=== PATIENT | female | born 1950 | race Caucasian/White ===

== ENCOUNTER 2018-11-20 11:01 | Observation (INO) | payer MEDICARE ==
[~2018-11-20] VITALS: Ht 157.5 cm; Wt 90.5 kg
--- OUTSIDE RECORDS SUMMARY | 2018-11-20 12:09 | XMS REPORT | Clinical Summary ---
Author Author [facility] Organization [facility] Address Unknown Phone Unavailable Care Team Providers Care Caustic Loader Name Role Phone Jose Bhandari MD PCP Allergies No Known Allergies Medications End Date Status Medication Sig Dispensed Refills Start Date Active acetaminophen (TYLENOL) Insert 650 mg 0 650 MG suppository into the rectum every 4 (four) hours as needed for mild pain. Active meloxicam (MOBIC) 7.5 mg Take 1 tablet 14 tablet 0 tablet (7.5 mg 7 total) by mouth daily as needed for mild pain for up to 14 doses. Active Problems Not on file Immunizations Name Dates Previously Given Next Due Tdap 03/14/2017 Social History Date Tobacco Use Types Packs/Day Years Used Never Assessed Sex Assigned at Date Recorded Not on file Industry Job Start Date Occupation Not on file Not on file Not on file Travel End Travel History Travel Start No recent travel history available. Last Filed Vital Signs Not on file Plan of Treatment Health Maintenance Due Date Last Done Comments CERVICAL CANCER SCREENING 1973 BREAST CANCER SCREENING 2002 COLON CANCER SCREENING 2002 SHINGLES VACCINES (#1) 2002 65+ PNEUMOCOCCAL VACCINE 2017 (1 of 2 - PCV13) PNEUMOCOCCAL 2017 POLYSACCHARIDE VACCINE AGE 65 AND OVER INFLUENZA VACCINE 04/08/2018 Results Not on fileafter 11/19/2017 Insurance Payer Benefit Subscriber ID Type Phone Address Plan / Group [facility] xxxxxxxxx PPO THCARE PPO- [facility] xxxxxxxxx HMO/PPO THCARE CHOICE/CHO ICE + 5 [facility] karthikeyan (Home) [place] [id number] Advance Directives Patient has advance care planning documents on file. For more information, yanick thomas contact: Laci Chavez [phone] [place] [address]
--- OUTSIDE RECORDS SUMMARY | 2018-11-20 12:10 | XMS REPORT | Continuity of Care Document ---
Author Author [facility] Interface Address Unknown Phone Unavailable Problems Problem Status Onset Date Classification Date Reported Comments Source GENERAL PAIN Active 07/02/2015 [facility] 787.02 - NAUSEA ALONE Active 05/24/2015 [facility] Low back pain<sup>2</sup> Active 01/09/2015 Problem 07/05/2015 Data migrated from [email or web address] on 05/02/15. [facility] Lumbosacral spondylosis without myelopathy<sup>3</sup> Active 01/09/2015 Problem 07/05/2015 Data migrated from [email or web address] on 05/02/15. [facility] IMPLANT EXCHANGE/BRACHIOPLASTY 05/24 DS Active 05/07/2013 [facility] STOMACH PAIN Active 08/14/2012 [facility] MORBID OBESITY Active 02/26/2012 [facility] VOMITING/NAUSEA Active 02/17/2012 [facility] Nausea Active 09/08/2011 Problem 05/26/2013 [facility] Nausea Active 09/08/2011 Problem 07/05/2015 [facility] Degenerative disc disease Active Problem 05/26/2013 [facility] Depression Active Problem 05/26/2013 [facility] Depression Resolved Problem 05/26/2013 [facility] Hepatitis<sup>1</sup> Resolved Problem 05/26/2013 1B [facility] Hypertension Active Problem 05/26/2013 [facility] Morbid obesity Active Problem 05/26/2013 [facility] Degenerative disc disease Active Problem 07/05/2015 [facility] Depression Active Problem 07/05/2015 [facility] Depression Resolved Problem 07/05/2015 [facility] Hepatitis<sup>1</sup> Resolved Problem 07/05/2015 B [facility] Hypertension Active Problem 07/05/2015 [facility] Morbid obesity Active Problem 07/05/2015 [facility] ADMINISTRTVE ENCOUNT NOS Active [facility] Medications Medication Details Route Status Patient Instructions Ordering Provider Order Date Source biotin 5000 mcg oral tablet, disintegrating 0 Refill(s) Active 07/02/2015 [facility] Chlordiazepoxide Hydrochloride 5 MG / Clidinium bromide 2.5 MG Oral Capsule [Librax] 1 cap, PO, QID, PRN for indigestion, # 40 cap, 0 Refill(s) Active 07/02/2015 [facility] valACYclovir 500 mg oral tablet 500 mg=1 tab, PO, Q8H, # 42 tab, 0 Refill(s) Active 07/02/2015 [facility] Ketorolac 30 mg, Route: IM, Drug form: INJ, ONCE, Dosing Weight 84.091, kg, Priority: STAT, Start date: 07/02/15 5:42:00, Stop date: 07/02/15 5:42:00 Inactive 07/02/2015 [facility] omeprazole 20 mg oral delayed release capsule 20 mg=1 cap, PO, Daily, # 30 cap, 0 Refill(s) Active 07/02/2015 [facility] sucralfate 1 g oral tablet 2 gm=2 tab, PO, QID, # 240 tab, 0 Refill(s) Active 07/02/2015 [facility] ondansetron 4 mg, Route: IVP, ONCE, Dosing Weight 70.455, kg, PRN Nausea & Vomiting, Start date: 05/24/13 10:48:00 IVP No Longer Active Sinan 05/24/2013 [facility] hydromorphone 0.5 mg, 0.5 mL, Route: IVP, Drug form: INJ, Q5Min, Dosing Weight 70.455, kg, PRN Pain Score 7-10, Start date: 05/24/13 10:48:00, Duration: 5 doses or times, Stop date: Limited # of times IVP No Longer Active Sinan 05/24/2013 [facility] fentanyl 25 microgram, 0.5 mL, Route: IVP, Drug form: INJ, Q5Min, Dosing Weight 70.455, kg, PRN Pain Score 4-6, Start date: 05/24/13 10:48:00, Duration: 4 doses or times, Stop date: Limited # of times IVP No Longer Active Sinan 05/24/2013 [facility] flumazenil 0.2 mg, 2 mL, Route: IVP, Drug form: INJ, PRN, Dosing Weight 70.455, kg, PRN Benzodiazepine Reversal, Initial dose, Start date: 05/24/13 10:48:00, Duration: 5 doses or times, Stop date: Limited # of times IVP No Longer Active Sinan 05/24/2013 [facility] naloxone 0.04 mg, 0.1 mL, Route: IVP, Drug form: INJ, Q2MIN, Dosing Weight 70.455, kg, PRN Narcotic Reversal, Start date: 05/24/13 10:48:00, Duration: 8 doses or times, Stop date: Limited # of times IVP No Longer Active Sinan 05/24/2013 [facility] acetaminophen-oxycodone 325 mg-5 mg oral tablet 1 tab, Route: PO, Drug Form: TAB, Dosing Weight 70.455, kg, Q4H, PRN Pain Score 1-3, Start date: 05/24/13 10:48:00, Duration: 30 day, Stop date: 06/23/13 10:47:00 PO No Longer Active Sinan 05/24/2013 [facility] DepoMedrol 80 mg, Route: IM, Drug form: SUSP, ONCE, Dosing Weight 70.455, kg, Start date: 05/24/13 10:34:00, Stop date: 05/24/13 10:34:00 IM No Longer Active [place] 05/24/2013 [facility] dexamethasone 8 mg, Route: IV, ONCE, Dosing Weight 70.455, kg, Start date: 05/24/13 6:50:00, Stop date: 05/24/13 6:50:00 IV No Longer Active [place]enas 05/24/2013 [facility] Ancef 1 gm, Route: IVPB, ONCE, Dosing Weight 70.455, kg, Start date: 05/24/13 6:50:00, Stop date: 05/24/13 6:50:00 IVPB No Longer Active Vitenas 05/24/2013 [facility] Lactated Ringers Injection IV 1000 mL 1,000 mL, Rate: 25 ml/hr, Infuse over: 40 hr, Route: IV, Dosing Weight 70.455 kg, Total Volume: 1,000, Start date: 05/24/13 6:50:00, Duration: 30 day, Stop date: 06/23/13 6:49:00 IV No Longer Active Matt 05/24/2013 [facility] Ofirmev 1,000 mg, 100 mL, Route: IV, Drug form: INJ, ONCE, Dosing Weight 70.455, kg, PRN Pain, for > or=50 kg, Start date: 05/14/13 9:52:00 IV No Longer Active Sinan 05/14/2013 [facility] Vivelle 0.05 mg/24 hours twice weekly transdermal film, extended release 1 patch, TOP, 2x/Wk, 8 patch, Substitution Allowed, Maintenance, ERFILM TOP Active 05/13/2013 [facility] multivitamin PO, Daily, Substitution Allowed, Maintenance PO Active 05/13/2013 [facility] lisinopril 20 mg, PO, Daily, Substitution Allowed PO Active 05/13/2013 [facility] Zofran 4 mg oral tablet 4 mg, 1 tab, PO, BID, 10 tab, Substitution Allowed PO Active [place] 08/15/2012 [facility] Humphrey 5/325 oral tablet 1-2 tab, PO, Q4-6H, PRN, 15 tab, Pain, Substitution Allowed, Maintenance PO Active [place] 08/15/2012 [facility] hydromorphone 1 mg, 1 mL, Route: IVP, Drug form: SOLN, ONCE, Dosing Weight 72.727, kg, Priority: STAT, Start date: 08/14/12 16:41:00, Stop date: 08/14/12 16:41:00 IVP No Longer Active [place] 08/14/2012 [facility] ondansetron 4 mg, 2 mL, Route: IVP, Drug form: INJ, ONCE, Dosing Weight 72.727, kg, Priority: STAT, Start date: 08/14/12 16:41:00, Stop date: 08/14/12 16:41:00 IVP No Longer Active [place] 08/14/2012 [facility] Saline Flush 0.9% 5 mL, Route: IVP, Drug Form: INJ, Dosing Weight 72.727, kg, PRN, PRN Line Flush, Start date: 08/14/12 16:41:00, Duration: 24 hr, Stop date: 08/15/12 16:40:00 IVP No Longer Active [place] 08/14/2012 [facility] Sodium Chloride 0.9% IV 1,000 mL 1,000 mL, Rate: 125 ml/hr, Infuse over: 8 hr, Route: IV, kg, Total Volume: 1,000, Start date: 08/14/12 16:41:00, Duration: 30 day, Stop date: 09/13/12 16:40:00 IV No Longer Active [place] 08/14/2012 [facility] Zyrtec 10 mg, 1 tab, Route: PO, Drug form: TAB, BID, Start date: 03/14/12 17:00:00, Duration: 30 day, Stop date: 04/13/12 9:00:00 PO No Longer Active [place] 03/14/2012 [facility] Phenergan 12.5 mg oral tablet 12.5 mg, 1 tab, PO, Q4H, PRN, 30 tab, Other-See Comments, Substitution Allowed, TAB PO Active [place] [facility] 03/14/2012 [facility] Lortab 500 mg-7.5 mg/15 mL oral elixir 15 ml, PO, Q4H, PRN, 200 mL, for pain, Substitution Allowed, Soft Stop, ELIX PO Active [place] 03/14/2012 [facility] BD Normal Saline Flush 10 mL, Route: IV, Drug Form: INJ, Q8H, Start date: 03/13/12 16:00:00, Duration: 30 day, Stop date: 04/12/12 8:00:00 IV No Longer Active [place] 03/13/2012 [facility] Diflucan 400 mg, 200 mL, Route: IV, Drug form: INJ, ONCE, Start date: 03/13/12 15:15:00, Stop date: 03/13/12 15:15:00 IV No Longer Active Fernando 03/13/2012 [facility] Lovenox 40 mg, 0.4 mL, Route: SUB-Q, Drug form: INJ, [id number], Start date: 03/13/12 12:00:00, Duration: 30 day, Stop date: 04/12/12 0:00:00 SUB-Q No Longer Active Fernando 03/13/2012 [facility] acetaminophen-hydrocodone 15 mL, Route: PO, Drug Form: ELIX, Q4H, PRN Pain, Start date: 03/13/12 11:09:00, Duration: 30 day, Stop date: 04/12/12 11:08:00 PO No Longer Active Fernando 03/13/2012 [facility] Tylenol 650 mg, 20.3 mL, Route: PO, Drug form: LIQ, Q4H, PRN Pain Score 1-3, Start date: 03/13/12 11:09:00, Duration: 30 day, Stop date: 04/12/12 11:08:00 PO No Longer Active Fernando 03/13/2012 [facility] BD Normal Saline Flush 10 mL, Route: IV, Drug Form: INJ, PRN, PRN Line Flush, Start date: 03/13/12 11:08:00, Duration: 30 day, Stop date: 04/12/12 11:07:00 IV No Longer Active Fernando 03/13/2012 [facility] Sodium Chloride 0.9% IV 25 mL, Route: IV, Start date: 03/13/12 11:08:00, Duration: 30 day, Stop date: 04/12/12 11:07:00, PRN Line Flush IV No Longer Active Fernando 03/13/2012 [facility] Pepcid 20 mg, 2 mL, Route: IVP, Drug form: INJ, Q12H, Start date: 03/12/12 21:00:00, Duration: 30 day, Stop date: 04/11/12 9:00:00 IVP No Longer Active Fernando 03/13/2012 [facility] ketorolac 30 mg/mL injectable solution 30 mg, 1 mL, Route: IV, Drug form: INJ, Q6H, Start date: 03/12/12 18:00:00, Duration: 4 day, Stop date: 03/16/12 12:00:00 IV No Longer Active Fernando 03/12/2012 [facility] Vasotec 1.25 mg, 1 mL, Route: IVP, Drug form: INJ, Q6H, PRN Hypertension, Start date: 03/12/12 14:13:00, Duration: 2 day, Stop date: 03/14/12 14:12:00 IVP No Longer Active Fernando 03/12/2012 [facility] Phenergan 25 mg, 1 mL, Route: IM, Drug form: INJ, Q4H, PRN Nausea, Start date: 03/12/12 14:13:00, Duration: 30 day, Stop date: 04/11/12 14:12:00 IM No Longer Active [place] 03/12/2012 [facility] Lactated Ringers Injection IV 1,000 mL 1,000 mL, Rate: 80 ml/hr, Infuse over: 12.5 hr, Route: IV, Dosing Weight 88 kg, Total Volume: 1,000, Start date: 03/12/12 14:11:00, Stop date: 04/11/12 14:10:00 IV No Longer Active Fernando 03/12/2012 [facility] Benadryl 25 mg, 0.5 mL, Route: IVP, Drug form: INJ, Q6H, PRN Itching, Start date: 03/12/12 12:13:00, Duration: 30 day, Stop date: 04/11/12 12:12:00 IVP No Longer Active Fernando 03/12/2012 [facility] naloxone 0.2 mg, 0.5 mL, Route: IVP, Drug form: INJ, Q5Min, PRN Narcotic Reversal, Start date: 03/12/12 12:13:00, Duration: 30 day, Stop date: 04/11/12 12:12:00 IVP No Longer Active Fernando 03/12/2012 [facility] Zofran 4 mg, 2 mL, Route: IVP, Drug form: INJ, Q8H, PRN Nausea & Vomiting, Start date: 03/12/12 12:13:00, Duration: 30 day, Stop date: 04/11/12 12:12:00 IVP No Longer Active Fernando 03/12/2012 [facility] morphine Sulfate 30 mg IV, Start date: 03/12/12 12:11:00, Duration: 30, 30 ml IV No Longer Active Fernando 03/12/2012 [facility] Invanz 1 gm, Route: IV, PRE OP, Start date: 03/12/12 10:00:00 IV No Longer Active Fernando 03/12/2012 [facility] Ofirmev 1,000 mg, 100 mL, Route: IV, Drug form: INJ, ONCE, PRN For Pain, for > or=50 kg, Start date: 03/12/12 8:28:00, Stop date: 04/11/12 8:27:00 IV No Longer Active [place] 03/12/2012 [facility] Lactated Ringers Injection IV 1,000 mL 1,000 mL, Rate: 25 ml/hr, Infuse over: 40 hr, Route: IV, Dosing Weight 88.295 kg, Total Volume: 1,000, Start date: 03/12/12 8:26:00, Duration: 30 day, Stop date: 04/11/12 8:25:00 IV No Longer Active [facility] 03/12/2012 [facility] ondansetron 4 mg, 2 mL, Route: IVP, Drug form: INJ, ONCE, PRN Nausea & Vomiting, Start date: 03/12/12 8:07:00 IVP No Longer Active [facility] 03/12/2012 [facility] morphine Sulfate 2 mg, 1 mL, Route: IVP, Drug form: INJ, Q5Min, PRN Pain Score 4-6, Start date: 03/12/12 8:07:00, Duration: 8 doses or times, Stop date: Limited # of times IVP No Longer Active [facility] 03/12/2012 [facility] hydromorphone 0.5 mg, 0.25 mL, Route: IVP, Drug form: INJ, Q5Min, PRN Pain Score 4-6, Start date: 03/12/12 8:07:00, Duration: 5 doses or times, Stop date: Limited # of times IVP No Longer Active [facility] 03/12/2012 [facility] flumazenil 0.2 mg, 2 mL, Route: IVP, Drug form: INJ, PRN, PRN Benzodiazepine Reversal, Initial dose, Start date: 03/12/12 8:07:00, Duration: 30 day, Stop date: 04/11/12 8:06:00 IVP No Longer Active [facility] 03/12/2012 [facility] meperidine 12.5 mg, 0.25 mL, Route: IVP, Drug form: INJ, Q30Min, PRN Other -See Comment, For shivering, Start date: 03/12/12 8:07:00, Duration: 2 doses or times, Stop date: Limited # of times IVP No Longer Active [facility] 03/12/2012 [facility] naloxone 0.04 mg, 0.1 mL, Route: IVP, Drug form: INJ, Q2MIN, PRN Narcotic Reversal, Start date: 07/05/12 8:07:00, Duration: 8 doses or times, Stop date: Limited # of times IVP No Longer Active [place] 03/12/2012 [facility] multivitamin 1 tab, PO, Daily, Substitution Allowed, Maintenance PO Active 02/21/2012 [facility] omega-3 polyunsaturated fatty acids 1 tab, PO, Daily, Substitution Allowed PO Active 02/21/2012 [facility] Aspirin Low Dose 81 mg oral tablet 81 mg, 1 tab, PO, Daily, Substitution Allowed PO Active 02/21/2012 [facility] Claritin 10 mg, PO, Daily, Substitution Allowed PO Active 02/21/2012 [facility] Zyrtec 10 mg, PO, BID, Substitution Allowed PO Active 02/21/2012 [facility] Vivelle-Dot TOP, Substitution Allowed, Maintenance TOP Active 02/21/2012 [facility] lisinopril 20/12.5, Substitution Allowed Active 02/21/2012 [facility] Lipitor 40 mg oral tablet 40 mg, 1 tab, Bedtime, Substitution Allowed Active 02/21/2012 [facility] Effexor 75 mg, Daily, Substitution Allowed Active 02/21/2012 [facility] Allergies, Adverse Reactions, Alerts Substance Category Reaction Severity Reaction type Status Date Reported Comments Source codeine drug allergy sever nausea Allergy Active [facility] NKFA drug allergy Allergy Active [facility] Immunizations Immunization Date Given Site Status Last Updated Comments Source Results Order Name Results Value Reference Range Date Interpretation Comments Source Gallbladder scan [facility] Gallbladder scan [facility] NUCLEAR MEDICINE HIDA SCAN DATE: May 26, 2015 01:33:00 PM INDICATION: 787.02 Nausea Alone COMPARISON: CT abdomen pelvis 08/14/2012 TECHNIQUE: Following the intravenous administration of 5.19 millicuries technetium-99m Choletec, dynamic images of the abdomen were obtained in the anterior projection for 60 minutes. Next, after oral ingestion of ENSURE BOOST , dynamic images were obtained of the abdomen for additional 30 minutes. A region of interest was drawn around the gallbladder and ejection fraction was calculated. FINDINGS: There is normal extraction of radiotracer by the hepatic parenchyma with normal clearance. The intrahepatic biliary duct, common bile duct, gallbladder and small bowel are all visualized within first 60 minutes Gallbladder ejection fraction is normal at 30minutes, measuring greater than 70%. (Normal is greater than 35%) IMPRESSION: Normal HIDA scan and gallbladder ejection fraction. 05/26/2015 - - Read by: Aurelia Castillo MD Dictated Date/time: 05/26/15 16:00 Electronically Signed by: Aurelia Castillo MD 05/26/15 16:01 FINAL REPORT [facility] CHEMISTRY Sodium Lvl 139 meq/L 135 - 145 05/13/2013 Normal [facility] CHEMISTRY Potassium Lvl 4.1 meq/L 3.5 - 5.1 05/13/2013 Normal [facility] CHEMISTRY Chloride Lvl 101 meq/L 95 - 109 05/13/2013 Normal [facility] CHEMISTRY AGAP 9.1 meq/L 10.0 - 20.0 05/13/2013 LOW [facility] CHEMISTRY CO2 33 meq/L 24 - 32 05/13/2013 HI [facility] HEMATOLOGY Hct 38.6 % 36.0 - 48.0 05/13/2013 Normal [facility] HEMATOLOGY Hgb 12.6 g/dL 12.0 - 16.0 05/13/2013 Normal [facility] HEMATOLOGY MCH 30.9 pg 27.0 - 31.0 08/15/2012 Normal [facility] HEMATOLOGY RDW 13.6 % 11.5 - 14.5 08/15/2012 Normal [facility] HEMATOLOGY Platelet 175 K/CMM 133 - 450 08/15/2012 Normal [facility] HEMATOLOGY MPV 8.9 fL 7.4 - 10.4 08/15/2012 Normal [facility] HEMATOLOGY MCHC 33.1 g/dL 32.0 - 36.0 08/15/2012 Normal [facility] HEMATOLOGY MCV 93.6 fL 81.0 - 99.0 08/15/2012 Normal [facility] HEMATOLOGY Hct 35.2 % 36.0 - 48.0 08/15/2012 LOW [facility] HEMATOLOGY WBC 5.4 K/CMM 3.7 - 10.4 08/15/2012 Normal [facility] HEMATOLOGY RBC 3.76 M/CMM 4.20 - 5.40 08/15/2012 LOW [facility] HEMATOLOGY Hgb 11.6 g/dL 12.0 - 16.0 08/15/2012 LOW [facility] HEMATOLOGY Eosinophils 3.6 % 0.0 - 4.0 08/15/2012 Normal [facility] HEMATOLOGY Basophils 0.6 % 0.0 - 1.0 08/15/2012 Normal [facility] HEMATOLOGY Segs-Bands # 2.9 K/CMM 1.5 - 8.1 08/15/2012 Normal [facility] HEMATOLOGY Eosinophils # 0.2 K/CMM 0.0 - 0.5 08/15/2012 Normal [facility] HEMATOLOGY Basophils # 0.0 K/CMM 0.0 - 0.2 08/15/2012 Normal [facility] HEMATOLOGY Segs 52.7 % 45.0 - 75.0 08/15/2012 Normal [facility] HEMATOLOGY Lymphocytes 35.0 % 20.0 - 40.0 08/15/2012 Normal [facility] HEMATOLOGY Monocytes 8.1 % 2.0 - 12.0 08/15/2012 Normal [facility] HEMATOLOGY Lymphocytes # 1.9 K/CMM 1.0 - 5.5 08/15/2012 Normal [facility] HEMATOLOGY Monocytes # 0.4 K/CMM 0.0 - 0.8 08/15/2012 Normal [facility] CHEMISTRY Alk Phos 87 unit/L 39 - 136 08/14/2012 Normal [facility] CHEMISTRY ALT 26 unit/L 0 - 65 08/14/2012 Normal [facility] CHEMISTRY Bili Total 0.3 mg/dL 0.2 - 1.3 08/14/2012 Normal [facility] CHEMISTRY AST 26 unit/L 0 - 37 08/14/2012 Normal [facility] CHEMISTRY Total Protein 7.3 g/dL 6.4 - 8.4 08/14/2012 Normal [facility] CHEMISTRY eGFR 70 mL/min/1.73m2 08/14/2012 NA 1Result Comment: The eGFR is calculated using the CKD-EPI formula. In most young, healthy individuals the eGFR will be >90 mL/min/1.73m2. The eGFR declines with age. An eGFR of 60-89 may be normal in some populations, particularly the elderly, for whom the CKD-EPI formula has not been extensively validated. Use of the eGFR is not recommended in the following populations: Individuals with unstable creatinine concentrations, including patients and those with serious co-morbid conditions. Patients with extremes in muscle mass or diet. The data above are obtained from the National Kid[employer] Disease Education Program (NKDEP) which additionally recommends that when the eGFR is used in patients with extremes of body mass index for purposes of drug dosing, the eGFR should be multiplied by the estimated BMI. [facility] CHEMISTRY Glucose Lvl 71 mg/dL 70 - 99 08/14/2012 Normal 2Interpretive Data: Adult reference range values reflect the clinical guidelines of the [place] [employer]. [facility] CHEMISTRY Albumin Lvl 3.8 g/dL 3.5 - 5.0 08/14/2012 Normal [facility] CHEMISTRY Sodium Lvl 142 meq/L 135 - 145 08/14/2012 Normal [facility] CHEMISTRY BUN 15 mg/dL 7 - 22 08/14/2012 Normal [facility] CHEMISTRY Creatinine Lvl 0.9 mg/dL 0.5 - 1.4 08/14/2012 Normal [facility] CHEMISTRY Potassium Lvl 3.6 meq/L 3.5 - 5.1 08/14/2012 Normal [facility] CHEMISTRY CO2 34 meq/L 24 - 32 08/14/2012 HI [facility] CHEMISTRY Calcium Lvl 9.1 mg/dL 8.5 - 10.5 08/14/2012 Normal [facility] CHEMISTRY Chloride Lvl 103 meq/L 95 - 109 08/14/2012 Normal [facility] CHEMISTRY Globulin 3.5 g/dL 2.0 - 4.0 08/14/2012 Normal [facility] CHEMISTRY A/G Ratio 1.1 0.7 - 1.6 08/14/2012 Normal [facility] CHEMISTRY AGAP 8.6 meq/L 10.0 - 20.0 08/14/2012 LOW [facility] CHEMISTRY B/C Ratio 17 6 - 25 08/14/2012 Normal [facility] CHEMISTRY Lipase Lvl 154 unit/L 73 - 393 08/14/2012 Normal [facility] CHEMISTRY Amylase Lvl 84 unit/L 25 - 115 08/14/2012 Normal [facility] URINALYSIS UA Urobilinogen <=1.0 mg/dL
*NA*
(08/14/2012 16:53:00) <sup> </sup> 0.1 - 1.0 08/14/2012 NA [facility] URINALYSIS UA Mucus Few /LPF *NA* (08/14/2012 16:53:00) None Seen 08/14/2012 NA [facility] URINALYSIS UA Blood Negative (08/14/2012 16:53:00) Negative 08/14/2012 Normal [facility] URINALYSIS UA Sq Epi Occasional /LPF *NA* (08/14/2012 16:53:00) Few 08/14/2012 NA [facility] URINALYSIS UA Protein Negative mg/dL (08/14/2012 16:53:00) Negative 08/14/2012 Normal [facility] URINALYSIS UA Glucose Negative mg/dL *NA* (08/14/2012 16:53:00) Negative 08/14/2012 NA [facility] URINALYSIS UA pH 6.0 5.0 - 8.0 08/14/2012 Normal [facility] URINALYSIS UA Ketones Trace mg/dL *ABN* (08/14/2012 16:53:00) Negative 08/14/2012 [facility] URINALYSIS UA Bili Negative *NA* (08/14/2012 16:53:00) Negative 08/14/2012 NA [facility] URINALYSIS UA WBC 1 /HPF 0 - 5 08/14/2012 Normal [facility] URINALYSIS UA RBC null 0 - 2 08/14/2012 Normal [facility] URINALYSIS UA Bacteria Occasional /HPF *NA* (08/14/2012 16:53:00) None Seen 08/14/2012 NA [facility] URINALYSIS UA Nitrite Negative (08/14/2012 16:53:00) Negative 08/14/2012 Normal [facility] URINALYSIS UA Leuk Est Negative (08/14/2012 16:53:00) Negative 08/14/2012 Normal [facility] URINALYSIS UA Turbidity Clear (08/14/2012 16:53:00) Clear 08/14/2012 Normal [facility] URINALYSIS UA Spec Grav 1.015 <=1.030 08/14/2012 Normal [facility] URINALYSIS UA Color Yellow *NA* (08/14/2012 16:53:00) Yellow 08/14/2012 NA [facility] CHEMISTRY AGAP 11.1 meq/L 10.0 - 20.0 03/14/2012 Normal [facility] CHEMISTRY B/C Ratio 13 6 - 25 03/14/2012 Normal [facility] CHEMISTRY Globulin 2.6 g/dL 2.0 - 4.0 03/14/2012 Normal [facility] CHEMISTRY A/G Ratio 1.1 0.7 - 1.6 03/14/2012 Normal [facility] CHEMISTRY AST 20 U/L 0 - 37 03/14/2012 Normal [facility] CHEMISTRY Alk Phos 44 U/L 39 - 136 03/14/2012 Normal [facility] CHEMISTRY Total Protein 5.5 g/dL 6.4 - 8.4 03/14/2012 LOW [facility] CHEMISTRY ALT 25 U/L 0 - 65 03/14/2012 Normal [facility] CHEMISTRY Bili Total 0.3 mg/dL 0.2 - 1.3 03/14/2012 Normal [facility] CHEMISTRY Albumin Lvl 2.9 g/dL 3.5 - 5.0 03/14/2012 LOW [facility] CHEMISTRY Chloride Lvl 102 meq/L 95 - 109 03/14/2012 Normal [facility] CHEMISTRY CO2 31 meq/L 24 - 32 03/14/2012 Normal [facility] CHEMISTRY Potassium Lvl 4.1 meq/L 3.5 - 5.1 03/14/2012 Normal [facility] [facility] CHEMISTRY Calcium Lvl 7.7 mg/dL 8.5 - 10.5 03/14/2012 LOW [facility] CHEMISTRY Creatinine Lvl 1.0 mg/dL 0.5 - 1.4 03/14/2012 Normal [facility] CHEMISTRY BUN 13 mg/dL 7 - 22 03/14/2012 Normal [facility] CHEMISTRY Sodium Lvl 140 meq/L 135 - 145 03/14/2012 Normal [facility] CHEMISTRY Glucose Lvl 78 mg/dL 70 - 99 03/14/2012 Normal 1Interpretive Data: Adult reference range values reflect the clinical guidelines of the [place] [employer]. [facility] HEMATOLOGY Basophils # 0.0 K/CMM 0.0 - 0.2 03/14/2012 Normal [facility] HEMATOLOGY Eosinophils # 0.3 K/CMM 0.0 - 0.5 03/14/2012 Normal [facility] HEMATOLOGY Lymphocytes # 1.7 K/CMM 1.0 - 5.5 03/14/2012 Normal [facility] HEMATOLOGY Monocytes # 0.6 K/CMM 0.0 - 0.8 03/14/2012 Normal [facility] HEMATOLOGY Segs-Bands # 3.3 K/CMM 1.5 - 8.1 03/14/2012 Normal [facility] HEMATOLOGY Basophils 0.4 % 0.0 - 1.0 03/14/2012 Normal [facility] HEMATOLOGY Eosinophils 4.8 % 0.0 - 4.0 03/14/2012 HI [facility] HEMATOLOGY Monocytes 9.6 % 2.0 - 12.0 03/14/2012 Normal [facility] HEMATOLOGY Lymphocytes 28.8 % 20.0 - 40.0 03/14/2012 [facility] HEMATOLOGY Segs 56.4 % 45.0 - 75.0 03/14/2012 Normal [facility] HEMATOLOGY WBC 5.8 K/CMM 3.7 - 10.4 03/14/2012 Normal [facility] HEMATOLOGY RBC 3.38 M/CMM 4.20 - 5.40 03/14/2012 [facility] HEMATOLOGY Hgb 10.7 g/dL 12.0 - 16.0 03/14/2012 [facility] HEMATOLOGY Hct 31.0 % 36.0 - 48.0 03/14/2012 [facility] HEMATOLOGY MCV 91.9 fL 81.0 - 99.0 03/14/2012 Normal [facility] HEMATOLOGY MCH 31.8 pg 27.0 - 31.0 03/14/2012 [facility] HEMATOLOGY Platelet 128 K/CMM 133 - 450 03/14/2012 [facility] HEMATOLOGY RDW 13.1 % 11.5 - 14.5 03/14/2012 Normal [facility] HEMATOLOGY MCHC 34.5 g/dL 32.0 - 36.0 03/14/2012 [facility] HEMATOLOGY MPV 8.9 fL 7.4 - 10.4 03/14/2012 [facility] CHEMISTRY AST 31 U/L 0 - 37 03/13/2012 Normal [facility] CHEMISTRY Alk Phos 55 U/L 39 - 136 03/13/2012 Normal [facility] CHEMISTRY Bili Total 0.3 mg/dL 0.2 - 1.3 03/13/2012 Normal [facility] CHEMISTRY Albumin Lvl 3.7 g/dL 3.5 - 5.0 03/13/2012 Normal [facility] CHEMISTRY ALT 35 U/L 0 - 65 03/13/2012 Normal [facility] CHEMISTRY Total Protein 7.1 g/dL 6.4 - 8.4 03/13/2012 Normal [facility] CHEMISTRY Calcium Lvl 8.6 mg/dL 8.5 - 10.5 03/13/2012 Normal [facility] CHEMISTRY Chloride Lvl 103 meq/L 95 - 109 03/13/2012 Normal [facility] CHEMISTRY CO2 30 meq/L 24 - 32 03/13/2012 Normal [facility] CHEMISTRY Sodium Lvl 142 meq/L 135 - 145 03/13/2012 Normal [facility] CHEMISTRY BUN 14 mg/dL 7 - 22 03/13/2012 Normal [facility] CHEMISTRY Potassium Lvl 4.4 meq/L 3.5 - 5.1 03/13/2012 Normal [facility] CHEMISTRY Creatinine Lvl 1.0 mg/dL 0.5 - 1.4 03/13/2012 Normal [facility] CHEMISTRY Glucose Lvl 75 mg/dL 70 - 99 03/13/2012 Normal 2Interpretive Data: Adult reference range values reflect the clinical guidelines of the [place] [employer]. [facility] CHEMISTRY A/G Ratio 1.1 0.7 - 1.6 03/13/2012 Normal [facility] CHEMISTRY Globulin 3.4 g/dL 2.0 - 4.0 03/13/2012 Normal [facility] CHEMISTRY AGAP 13.4 meq/L 10.0 - 20.0 03/13/2012 Normal [facility] CHEMISTRY B/C Ratio 14 6 - 25 03/13/2012 Normal [facility] HEMATOLOGY Segs-Bands # 6.7 K/CMM 1.5 - 8.1 03/13/2012 Normal [facility] HEMATOLOGY Basophils 1.0 % 0.0 - 1.0 03/13/2012 Normal [facility] HEMATOLOGY Basophils # 0.1 K/CMM 0.0 - 0.2 03/13/2012 Normal [facility] HEMATOLOGY Lymphocytes # 2.7 K/CMM 1.0 - 5.5 03/13/2012 Normal [facility] HEMATOLOGY Monocytes 9.3 % 2.0 - 12.0 03/13/2012 Normal [facility] HEMATOLOGY Lymphocytes 25.3 % 20.0 - 40.0 03/13/2012 Normal [facility] HEMATOLOGY Segs 63.6 % 45.0 - 75.0 03/13/2012 Normal [facility] HEMATOLOGY Eosinophils 0.8 % 0.0 - 4.0 03/13/2012 Normal [facility] HEMATOLOGY Eosinophils # 0.1 K/CMM 0.0 - 0.5 03/13/2012 Normal [facility] HEMATOLOGY Monocytes # 1.0 K/CMM 0.0 - 0.8 03/13/2012 HI [facility] HEMATOLOGY MPV 9.0 fL 7.4 - 10.4 03/13/2012 Normal [facility] HEMATOLOGY MCHC 33.5 g/dL 32.0 - 36.0 03/13/2012 Normal [facility] HEMATOLOGY RDW 13.1 % 11.5 - 14.5 03/13/2012 Normal [facility] HEMATOLOGY Platelet 181 K/CMM 133 - 450 03/13/2012 Normal [facility] HEMATOLOGY Hgb 13.5 g/dL 12.0 - 16.0 03/13/2012 Normal [facility] HEMATOLOGY MCV 92.5 fL 81.0 - 99.0 03/13/2012 Normal [facility] HEMATOLOGY MCH 31.0 pg 27.0 - 31.0 03/13/2012 Normal [facility] HEMATOLOGY Hct 40.4 % 36.0 - 48.0 03/13/2012 Normal [facility] HEMATOLOGY WBC 10.5 K/CMM 3.7 - 10.4 03/13/2012 [facility] HEMATOLOGY RBC 4.37 M/CMM 4.20 - 5.40 03/13/2012 Normal [facility] BLOOD BANK RESULTS ABO/Rh O POS 03/09/2012 Unknown [facility] BLOOD BANK RESULTS Antibody Scrn Negative (03/09/2012 14:20:00) 03/09/2012 Normal [facility] CHEMISTRY AST 24 U/L 0 - 37 03/09/2012 Normal [facility] CHEMISTRY Sodium Lvl 137 meq/L 135 - 145 03/09/2012 Normal [facility] CHEMISTRY Creatinine Lvl 0.9 mg/dL 0.5 - 1.4 03/09/2012 Normal [facility] CHEMISTRY BUN 24 mg/dL 7 - 22 03/09/2012 HI [facility] CHEMISTRY CO2 30 meq/L 24 - 32 03/09/2012 Normal [facility] CHEMISTRY Chloride Lvl 98 meq/L 95 - 109 03/09/2012 Normal [facility] CHEMISTRY Calcium Lvl 9.3 mg/dL 8.5 - 10.5 03/09/2012 Normal [facility] CHEMISTRY Total Protein 7.6 g/dL 6.4 - 8.4 03/09/2012 Normal [facility] CHEMISTRY Albumin Lvl 4.0 g/dL 3.5 - 5.0 03/09/2012 Normal [facility] CHEMISTRY Bili Total 0.3 mg/dL 0.2 - 1.3 03/09/2012 Normal [facility] CHEMISTRY Alk Phos 49 U/L 39 - 136 03/09/2012 Normal [facility] CHEMISTRY ALT 26 U/L 0 - 65 03/09/2012 Normal [facility] CHEMISTRY Potassium Lvl 4.0 meq/L 3.5 - 5.1 03/09/2012 Normal [facility] CHEMISTRY Glucose Lvl 72 mg/dL 70 - 99 03/09/2012 Normal 3Interpretive Data: Adult reference range values reflect the clinical guidelines of the [place] [employer]. [facility] CHEMISTRY A/G Ratio 1.1 0.7 - 1.6 03/09/2012 Normal [facility] CHEMISTRY Globulin 3.6 g/dL 2.0 - 4.0 03/09/2012 Normal [facility] CHEMISTRY B/C Ratio 27 6 - 25 03/09/2012 HI [facility] CHEMISTRY AGAP 13.0 meq/L 10.0 - 20.0 03/09/2012 Normal [facility] CHEMISTRY Vitamin D2 25-OH 9 ng/mL 03/09/2012 NA 5Result Comment: Test Performed at: [facility] [id number] [place] [id number] Keshawn Hudson MD, PhD [facility] CHEMISTRY Vitamin D, 25-OH, Total 25 ng/mL 30 - 100 03/09/2012 LOW 4Result Comment: http://education.[employer]/faq/25-OHVit aminD 25-OHD3 indicates both endogenous production and supplementation. 25-OHD2 is an indicator of exogenous sources such as diet or supplementation. Therapy is based on measurement of Total 25-OHD, with levels <20 ng/mL indicative of Vitamin D deficiency, while levels between 20 ng/mL and 30 ng/mL suggest insufficiency. Optimal levels are >=30 ng/mL. [facility] CHEMISTRY Vitamin D3 25-OH 16 ng/mL 03/09/2012 NA [facility] HEMATOLOGY Basophils # 0.0 K/CMM 0.0 - 0.2 03/09/2012 Normal [facility] HEMATOLOGY Basophils 0.6 % 0.0 - 1.0 03/09/2012 Normal [facility] HEMATOLOGY Segs-Bands # 3.1 K/CMM 1.5 - 8.1 03/09/2012 Normal [facility] HEMATOLOGY Lymphocytes # 2.2 K/CMM 1.0 - 5.5 03/09/2012 Normal [facility] HEMATOLOGY Monocytes # 0.4 K/CMM 0.0 - 0.8 03/09/2012 Normal [facility] HEMATOLOGY Eosinophils # 0.1 K/CMM 0.0 - 0.5 03/09/2012 Normal [facility] HEMATOLOGY Segs 52.4 % 45.0 - 75.0 03/09/2012 Normal [facility] HEMATOLOGY Monocytes 7.3 % 2.0 - 12.0 03/09/2012 Normal [facility] HEMATOLOGY Lymphocytes 37.3 % 20.0 - 40.0 03/09/2012 Normal [facility] HEMATOLOGY Eosinophils 2.4 % 0.0 - 4.0 03/09/2012 Normal [facility] HEMATOLOGY INR 1.06 0.85 - 1.17 03/09/2012 Normal 6Interpretive Data: RECOMMENDED RANGES FOR PROTIME INR: 2.0-3.0 for most medical and surgical thromboembolic states. 2.5-3.5 for artificial heart valves and recurrent embolism. INR SHOULD BE USED ONLY FOR PATIENTS ON STABLE ANTICOAGULANT THERAPY. [facility] HEMATOLOGY PTT 33.7 s 22.9 - 35.8 03/09/2012 Normal 7Interpretive Data: Heparin Therapeutic Range: 57 - 92 Seconds [facility] HEMATOLOGY PT 13.8 s 12.0 - 14.7 03/09/2012 Normal [facility] HEMATOLOGY MCH 31.3 pg 27.0 - 31.0 03/09/2012 HI [facility] HEMATOLOGY MCHC 34.6 g/dL 32.0 - 36.0 03/09/2012 Normal [facility] HEMATOLOGY RDW 12.6 % 11.5 - 14.5 03/09/2012 Normal [facility] HEMATOLOGY Platelet 165 K/CMM 133 - 450 03/09/2012 Normal [facility] HEMATOLOGY MPV 8.9 fL 7.4 - 10.4 03/09/2012 Normal [facility] HEMATOLOGY MCV 90.4 fL 81.0 - 99.0 03/09/2012 Normal [facility] HEMATOLOGY Hct 38.5 % 36.0 - 48.0 03/09/2012 Normal [facility] HEMATOLOGY Hgb 13.3 g/dL 12.0 - 16.0 03/09/2012 Normal [facility] HEMATOLOGY RBC 4.26 M/CMM 4.20 - 5.40 03/09/2012 Normal [facility] HEMATOLOGY WBC 6.0 K/CMM 3.7 - 10.4 03/09/2012 Normal [facility] URINALYSIS Micro? Not Indicated *NA* (03/09/2012 14:20:00) 03/09/2012 [facility] URINALYSIS UA Urobilinogen <=1.0 mg/dL
*NA*
(03/09/2012 14:20:00) <sup> </sup> 0.1 - 1.0 03/09/2012 [facility] URINALYSIS UA Sq Epi Occasional /LPF *NA* (03/09/2012 14:20:00) Few 03/09/2012 [facility] URINALYSIS UA Leuk Est Negative (03/09/2012 14:20:00) Negative 03/09/2012 Normal [facility] URINALYSIS UA Nitrite Negative (03/09/2012 14:20:00) Negative 03/09/2012 Normal [facility] URINALYSIS UA pH 5.0 5.0 - 8.0 03/09/2012 Normal [facility] URINALYSIS UA Spec Grav 1.005 <=1.030 03/09/2012 Normal [facility] URINALYSIS UA WBC null 0 - 5 03/09/2012 Normal [facility] URINALYSIS UA Blood Negative (03/09/2012 14:20:00) Negative 03/09/2012 Normal [facility] URINALYSIS UA Turbidity Clear (03/09/2012 14:20:00) Clear 03/09/2012 Normal [facility] URINALYSIS UA Color Colorless *NA* (03/09/2012 14:20:00) Yellow 03/09/2012 NA [facility] URINALYSIS UA Bili Negative *NA* (03/09/2012 14:20:00) Negative 03/09/2012 NA [facility] URINALYSIS UA Ketones 10 mg/dL *ABN* (03/09/2012 14:20:00) Negative 03/09/2012 ABN [facility] URINALYSIS UA Glucose Negative mg/dL *NA* (03/09/2012 14:20:00) Negative 03/09/2012 NA [facility] URINALYSIS UA Protein Negative mg/dL (03/09/2012 14:20:00) Negative 03/09/2012 Normal [facility] CHEMISTRY Sodium Lvl 143 meq/L 135 - 145 02/21/2012 Normal [facility] CHEMISTRY Potassium Lvl 3.7 meq/L 3.5 - 5.1 02/21/2012 Normal [facility] HEMATOLOGY Hct 37.3 % 36.0 - 48.0 02/21/2012 Normal [facility] HEMATOLOGY Hgb 12.5 g/dL 12.0 - 16.0 02/21/2012 Normal [facility] Vital Signs Vital Sign Value Date Comments Source Weight 84.091 07/02/2015 [facility] Temperature Oral (F) 98.4 F 07/02/2015 [facility] Systolic (mm Hg) 138 07/02/2015 [facility] Diastolic (mm Hg) 86 07/02/2015 [facility] Heart Rate 91 07/02/2015 [facility] Respitory Rate 20 07/02/2015 [facility] Respitory Rate 17 05/24/2013 [facility] Systolic (mm Hg) 138 05/24/2013 [facility] Diastolic (mm Hg) 60 05/24/2013 [facility] Respitory Rate 17 05/24/2013 [facility] Systolic (mm Hg) 148 05/24/2013 [facility] Diastolic (mm Hg) 49 05/24/2013 [facility] Respitory Rate 17 05/24/2013 [facility] Diastolic (mm Hg) 50 05/24/2013 [facility] Systolic (mm Hg) 142 05/24/2013 [facility] Weight 70.455 05/13/2013 [facility] Height 162.56 cm 05/13/2013 [facility] Temperature Oral (F) 98.2 F 05/13/2013 [facility] Heart Rate 76 05/13/2013 [facility] Height 160.02 cm 08/14/2012 [facility] Weight 72.727 08/14/2012 [facility] Temperature Oral (F) 98.3 F 03/14/2012 [facility] Heart Rate 83 03/14/2012 [facility] Respitory Rate 17 03/14/2012 [facility] Diastolic (mm Hg) 77 03/14/2012 [facility] Systolic (mm Hg) 125 03/14/2012 [facility] Respitory Rate 16 03/14/2012 [facility] Systolic (mm Hg) 129 03/14/2012 [facility] Heart Rate 75 03/14/2012 [facility] Diastolic (mm Hg) 72 03/14/2012 [facility] Temperature Oral (F) 98.2 F 03/14/2012 [facility] Respitory Rate 16 03/14/2012 [facility] Heart Rate 72 03/14/2012 [facility] Diastolic (mm Hg) 66 03/14/2012 [facility] Temperature Oral (F) 98.3 F 03/14/2012 [facility] Systolic (mm Hg) 119 03/14/2012 [facility] Weight 88.295 03/09/2012 [facility] Height 160.02 cm 03/09/2012 [facility] Respitory Rate 16 03/02/2012 [facility] Diastolic (mm Hg) 60 03/02/2012 [facility] Systolic (mm Hg) 110 03/02/2012 [facility] Systolic (mm Hg) 106 03/02/2012 [facility] Diastolic (mm Hg) 60 03/02/2012 [facility] Respitory Rate 16 03/02/2012 [facility] Respitory Rate 16 03/02/2012 [facility] Diastolic (mm Hg) 55 03/02/2012 [facility] Systolic (mm Hg) 109 03/02/2012 [facility] Heart Rate 66 03/02/2012 [facility] Height 160.02 cm 02/21/2012 [facility] Weight 90.455 02/21/2012 [facility] Encounters Location Location Details Encounter Type Encounter Number Reason For Visit Attending Provider ADM Date DC Date Status Source [facility] DS [id number] [facility] 03/02/2012 03/02/2012 Active [facility] Inpatient [id number] [facility] 03/12/2012 03/14/2012 Active [facility] [id number] NORA MCGEE 08/14/2012 08/14/2012 Active [facility] [id number] NORA ADAM JR 05/24/2013 05/24/2013 Active [facility] Outpatient [facility] [id number] [facility] 05/26/2015 05/27/2015 [facility] [id number] Blancamahi Goode 07/02/2015 07/02/2015 [facility] [id number] ROMELIA JUAREZ 03/09/2017 Active [facility] Procedures Procedure Code Date Perfomer Comments Source Laparoscopic adjustable gastric banding [id number] [facility] Breast augmentation [id number] [facility] Facelift surgery [id number] [facility] Gastric bypass [id number] [facility] Hysterectomy [id number] [facility] Laparoscopic adjustable gastric banding [id number] [facility] Breast augmentation [id number] [facility] Facelift surgery [id number] [facility] Gastric bypass [id number] [facility] Hysterectomy [id number] [facility] Laparoscopic adjustable gastric banding [id number] [facility] Breast augmentation [id number] [facility] Facelift surgery [id number] [facility] Gastric bypass [id number] [facility] Hysterectomy [id number] [facility]
--- OUTSIDE RECORDS SUMMARY | 2018-11-20 12:10 | XMS REPORT | CCD ---
Author Author Auto Generated Organization [facility] Address Unknown Phone Unavailable Care Team Providers Care Drill Instructor Name Role Phone Emil King Felice RP Serjio Jung R PP [phone] Allergies, Adverse Reactions, Alerts Substance Reaction Status codeine sever nausea Active Problem List Condition Effective Dates Status Nausea 2011 Active Medications Medication Instructions Start Date End Date Status multivitamin 1 tab, PO, Daily, Substitution 02/21/2012 Ordered Allowed, Maintenance omega-3 1 tab, PO, Daily, Substitution 02/21/2012 Ordered polyunsaturated Allowed fatty acids Aspirin Low Dose 81 81 mg, 1 tab, PO, Daily, 02/21/2012 Ordered mg oral tablet Substitution Allowed Claritin 10 mg, PO, Daily, Substitution 02/21/2012 Ordered Allowed Zyrtec 10 mg, PO, BID, Substitution 02/21/2012 Ordered Allowed Vivelle-Dot TOP, Substitution Allowed, 02/21/2012 Ordered Maintenance lisinopril 20/12.5, Substitution Allowed 02/21/2012 Ordered Lipitor 40 mg oral 40 mg, 1 tab, Bedtime, Substitution 02/21/2012 Ordered tablet Allowed Effexor 75 mg, Daily, Substitution Allowed 02/21/2012 Ordered Vital Signs Most recent to oldest [Reference Range]: 1 2 3 Height 160.02 cm (02/21/2012 15:19:00) Systolic Blood Pressure [90-140 mmHg] 110 mmHg (03/02/2012 09:15:00) 106 mmHg (03/02/2012 09:00:00) 109 mmHg (03/02/2012 08:45:00) Diastolic Blood Pressure [60-90 mmHg] 60 mmHg (03/02/2012 09:15:00) 60 mmHg (03/02/2012 09:00:00) 55 mmHg *LOW* (03/02/2012 08:45:00) Respiratory Rate [14-20 BRMIN] 16 BRMIN (03/02/2012 09:15:00) 16 BRMIN (03/02/2012 09:00:00) 16 BRMIN (03/02/2012 08:45:00) Peripheral Pulse Rate [60-100 bpm] 66 bpm (03/02/2012 07:16:00) Weight 90.455 kg (02/21/2012 15:19:00) Results CHEMISTRY Most recent to oldest [Reference Range]: 1 Sodium Lvl [135-145 mEq/L] 143 mEq/L (02/21/2012 16:00:00) Potassium Lvl [3.5-5.1 mEq/L] 3.7 mEq/L (02/21/2012 16:00:00) HEMATOLOGY Most recent to oldest [Reference Range]: 1 Hgb [12.0-16.0 g/dL] 12.5 g/dL (02/21/2012 16:00:00) Hct [36.0-48.0 %] 37.3 % (02/21/2012 16:00:00)
--- OUTSIDE RECORDS SUMMARY | 2018-11-20 12:11 | XMS REPORT | Summary of Care ---
Author Author [facility] Organization [facility] Address Unknown Phone Unavailable Care Team Providers Care Plastic Block Boiler Reliner Name Role Phone Jung Bassett PCP Encounter [facility] Yosef_denzel([facility]) [id number] Date(s): 07/02/15 - 07/02/15 [facility] [address] [place] [address]- [phone] Discharge Disposition: Non-Emergent Attending Physician: Blanca Goode DO Vital Signs Most recent to 1 oldest [Reference Range]: Temperature Oral 98.4 DegF [96.4-99.1 DegF] (07/02/15 3:39 AM) Blood Pressure 138/86 mmHg [90-140/60-90 mmHg] (07/02/15 3:39 AM) Respiratory Rate 20 BRMIN [14-20 BRMIN] (07/02/15 3:39 AM) Peripheral Pulse 91 bpm Rate [60-100 bpm] (07/02/15 3:39 AM) Weight 84.091 kg (07/02/15 3:39 AM) Problem List Condition Effective Dates Status Health Status Informant Degenerative disc Active disease(Confirmed) Depression(Confirmed Active ) Depression(Confirmed Resolved ) Hepatitis(Confirmed) Resolved 1 Hypertension(Confirm Active ed) Hypertension(Confirm Resolved ed) Low back pain2 01/09/15 Active Lumbosacral 01/09/15 Active spondylosis without myelopathy3 Morbid Active obesity(Confirmed) Nausea(Confirmed) 2011 Active 1B 2Data migrated from [employer] on 05/02/15. 3Data migrated from [employer] on 05/02/15. Allergies, Adverse Reactions, Alerts Substance Reaction Severity Status NKDA Active Medications biotin 5000 mcg oral tablet, disintegrating 0 Refill(s) Start Date: 07/02/15 Status: Ordered ketOROLAC 30 mg, Route: IM, Drug form: INJ, ONCE, Dosing Weight 84.091, kg, Priority: STAT , Start date: 07/02/15 5:42:00, Stop date: 07/02/15 5:42:00 Start Date: 07/02/15 Stop Date: 07/02/15 Status: Completed Librax 5mg-2.5 mg oral capsule 1 cap, PO, QID, PRN for indigestion, # 40 cap, 0 Refill(s) Start Date: 07/02/15 Stop Date: 07/12/15 Status: Ordered omeprazole 20 mg oral delayed release capsule 20 mg=1 cap, PO, Daily, # 30 cap, 0 Refill(s) Start Date: 07/02/15 Stop Date: 08/01/15 Status: Ordered sucralfate 1 g oral tablet 2 gm=2 tab, PO, QID, # 240 tab, 0 Refill(s) Start Date: 07/02/15 Stop Date: 08/31/15 Status: Ordered valACYclovir 500 mg oral tablet 500 mg=1 tab, PO, Q8H, # 42 tab, 0 Refill(s) Start Date: 07/02/15 Stop Date: 07/09/15 Status: Ordered Results No data available for this section Immunizations No data available for this section Procedures Procedure Date Related Diagnosis Body Site Breast augmentation Facelift surgery Gastric bypass Hysterectomy Laparoscopic adjustable gastric banding Social History Social History Type Response Smoking Status Never smoker; Exposure to Tobacco Smoke None; Cigarette Smoking Last 365 Days No; Reg Smoking Cessation Counseling No Assessment and Plan No data available for this section
--- OUTSIDE RECORDS SUMMARY | 2018-11-20 12:11 | XMS REPORT | CCD ---
Author Author Auto Generated Organization [facility] Address Unknown Phone Unavailable Care Team Providers Care Audience Development Manager Name Role Phone Emil King RP [place] Jung R PP [phone] Allergies, Adverse Reactions, Alerts Substance Reaction Status codeine sever nausea Active NKFA Active Problem List Condition Effective Dates Status Morbid obesity Active Nausea 2012 Active Medications Medication Instructions Start Date End Date Status Benadryl 25 mg, 0.5 mL, Route: IVP, Drug 03/12/2012 03/14/2012 Discontinued form: INJ, Q6H, PRN Itching, Start date: 03/12/12 12:13:00, Duration: 30 day, Stop date: 04/11/12 12:12:00 naloxone 0.2 mg, 0.5 mL, Route: IVP, Drug 03/12/2012 03/13/2012 Discontinued form: INJ, Q5Min, PRN Narcotic Reversal, Start date: 03/12/12 12:13:00, Duration: 30 day, Stop date: 04/11/12 12:12:00 acetaminophen-hydroc 15 mL, Route: PO, Drug Form: ELIX, 03/13/2012 03/14/2012 Discontinued odone Q4H, PRN Pain, Start date: 03/13/12 11:09:00, Duration: 30 day, Stop date: 04/12/12 11:08:00 morphine Sulfate 30 IV, Start date: 03/12/12 12:11:00, 03/12/2012 03/13/2012 Discontinued mg Duration: 30, 30 ml Vasotec 1.25 mg, 1 mL, Route: IVP, Drug 03/12/2012 03/14/2012 Discontinued form: INJ, Q6H, PRN Hypertension, Start date: 03/12/12 14:13:00, Duration: 2 day, Stop date: 03/14/12 14:12:00 Phenergan 25 mg, 1 mL, Route: IM, Drug form: 03/12/2012 03/14/2012 Discontinued INJ, Q4H, PRN Nausea, Start date: 03/12/12 14:13:00, Duration: 30 day, Stop date: 04/11/12 14:12:00 Tylenol 650 mg, 20.3 mL, Route: PO, Drug 03/13/2012 03/14/2012 Discontinued form: LIQ, Q4H, PRN Pain Score 1-3, Start date: 03/13/12 11:09:00, Duration: 30 day, Stop date: 04/12/12 11:08:00 Lovenox 40 mg, 0.4 mL, Route: SUB-Q, Drug 03/13/2012 03/14/2012 Discontinued form: INJ, [id number], Start date: 03/13/12 12:00:00, Duration: 30 day, Stop date: 04/12/12 0:00:00 Pepcid 20 mg, 2 mL, Route: IVP, Drug form: 03/12/2012 03/14/2012 Discontinued INJ, Q12H, Start date: 03/12/12 21:00:00, Duration: 30 day, Stop date: 04/11/12 9:00:00 BD Normal Saline 10 mL, Route: IV, Drug Form: INJ, 03/13/2012 03/14/2012 Discontinued Flush Q8H, Start date: 03/13/12 16:00:00, Duration: 30 day, Stop date: 04/12/12 8:00:00 BD Normal Saline 10 mL, Route: IV, Drug Form: INJ, 03/13/2012 03/14/2012 Discontinued Flush PRN, PRN Line Flush, Start date: 03/13/12 11:08:00, Duration: 30 day, Stop date: 04/12/12 11:07:00 Sodium Chloride 0.9% 25 mL, Route: IV, Start date: 03/13/2012 03/14/2012 Discontinued IV 03/13/12 11:08:00, Duration: 30 day, Stop date: 04/12/12 11:07:00, PRN Line Flush Phenergan 12.5 mg 12.5 mg, 1 tab, PO, Q4H, PRN, 30 03/14/2012 Ordered oral tablet tab, Other-See Comments, Substitution Allowed, TAB Ofirmev 1,000 mg, 100 mL, Route: IV, Drug 03/12/2012 03/12/2012 Completed form: INJ, ONCE, PRN For Pain, for > or=50 kg, Start date: 03/12/12 8:28:00, Stop date: 04/11/12 8:27:00 Lortab 500 mg-7.5 15 ml, PO, Q4H, PRN, 200 mL, for 03/14/2012 Ordered mg/15 mL oral elixir pain, Substitution Allowed, Soft Stop, ELIX Zyrtec 10 mg, 1 tab, Route: PO, Drug form: 03/14/2012 03/14/2012 Canceled TAB, BID, Start date: 03/14/12 17:00:00, Duration: 30 day, Stop date: 04/13/12 9:00:00 Zofran 4 mg, 2 mL, Route: IVP, Drug form: 03/12/2012 03/14/2012 Discontinued INJ, Q8H, PRN Nausea & Vomiting, Start date: 03/12/12 12:13:00, Duration: 30 day, Stop date: 04/11/12 12:12:00 ondansetron 4 mg, 2 mL, Route: IVP, Drug form: 03/12/2012 03/14/2012 Discontinued INJ, ONCE, PRN Nausea & Vomiting, Start date: 03/12/12 8:07:00 morphine Sulfate 2 mg, 1 mL, Route: IVP, Drug form: 03/12/2012 03/14/2012 Discontinued INJ, Q5Min, PRN Pain Score 4-6, Start date: 03/12/12 8:07:00, Duration: 8 doses or times, Stop date: Limited # of times hydromorphone 0.5 mg, 0.25 mL, Route: IVP, Drug 03/12/2012 03/14/2012 Discontinued form: INJ, Q5Min, PRN Pain Score 4-6, Start date: 03/12/12 8:07:00, Duration: 5 doses or times, Stop date: Limited # of times flumazenil 0.2 mg, 2 mL, Route: IVP, Drug 03/12/2012 03/14/2012 Discontinued form: INJ, PRN, PRN Benzodiazepine Reversal, Initial dose, Start date: 03/12/12 8:07:00, Duration: 30 day, Stop date: 04/11/12 8:06:00 meperidine 12.5 mg, 0.25 mL, Route: IVP, Drug 03/12/2012 03/14/2012 Discontinued form: INJ, Q30Min, PRN Other -See Comment, For shivering, Start date: 03/12/12 8:07:00, Duration: 2 doses or times, Stop date: Limited # of times naloxone 0.04 mg, 0.1 mL, Route: IVP, Drug 03/12/2012 03/13/2012 Discontinued form: INJ, Q2MIN, PRN Narcotic Reversal, Start date: 03/12/12 8:07:00, Duration: 8 doses or times, Stop date: Limited # of times Diflucan 400 mg, 200 mL, Route: IV, Drug 03/13/2012 03/13/2012 Completed form: INJ, ONCE, Start date: 03/13/12 15:15:00, Stop date: 03/13/12 15:15:00 Lactated Ringers 1,000 mL, Rate: 25 ml/hr, Infuse 03/12/2012 03/12/2012 Discontinued Injection IV 1,000 over: 40 hr, Route: IV, Dosing mL Weight 88.295 kg, Total Volume: 1,000, Start date: 03/12/12 8:26:00, Duration: 30 day, Stop date: 04/11/12 8:25:00 Lactated Ringers 1,000 mL, Rate: 80 ml/hr, Infuse 03/12/2012 03/14/2012 Discontinued Injection IV 1,000 over: 12.5 hr, Route: IV, Dosing mL Weight 88 kg, Total Volume: 1,000, Start date: 03/12/12 14:11:00, Stop date: 04/11/12 14:10:00 Invanz 1 gm, Route: IV, PRE OP, Start 03/12/2012 03/12/2012 Completed date: 03/12/12 10:00:00 ketorolac 30 mg/mL 30 mg, 1 mL, Route: IV, Drug form: 03/12/2012 03/14/2012 Discontinued injectable solution INJ, Q6H, Start date: 03/12/12 18:00:00, Duration: 4 day, Stop date: 03/16/12 12:00:00 Vital Signs Most recent to oldest [Reference Range]: 1 2 3 Height 160.02 cm (03/09/2012 13:56:00) Temperature Oral [96.4-99.1 DegF] 98.3 DegF (03/14/2012 07:00:00) 98.2 DegF (03/14/2012 04:00:00) 98.3 DegF (03/13/2012 23:00:00) Systolic Blood Pressure [90-140 mmHg] 125 mmHg (03/14/2012 07:00:00) 129 mmHg (03/14/2012 04:00:00) 119 mmHg (03/13/2012 23:00:00) Diastolic Blood Pressure [60-90 mmHg] 77 mmHg (03/14/2012 07:00:00) 72 mmHg (03/14/2012 04:00:00) 66 mmHg (03/13/2012 23:00:00) Respiratory Rate [14-20 BRMIN] 17 BRMIN (03/14/2012 07:00:00) 16 BRMIN (03/14/2012 04:00:00) 16 BRMIN (03/13/2012 23:00:00) Peripheral Pulse Rate [60-100 bpm] 83 bpm (03/14/2012 07:00:00) 75 bpm (03/14/2012 04:00:00) 72 bpm (03/13/2012 23:00:00) Weight 88.295 kg (03/09/2012 13:56:00) Results URINALYSIS Most recent to oldest [Reference Range]: 1 2 3 UA Turbidity [Clear] Clear (03/09/2012 14:20:00) UA Color [Yellow] Colorless *NA* (03/09/2012 14:20:00) UA pH [5.0-8.0] 5.0 (03/09/2012 14:20:00) UA Spec Grav [<=1.030] 1.005 (03/09/2012 14:20:00) UA Glucose [Negative mg/dL] Negative mg/dL *NA* (03/09/2012 14:20:00) UA Blood [Negative] Negative (03/09/2012 14:20:00) UA Ketones [Negative mg/dL] 10 mg/dL *ABN* (03/09/2012 14:20:00) UA Protein [Negative mg/dL] Negative mg/dL (03/09/2012 14:20:00) UA Urobilinogen [0.1-1.0 mg/dL] <=1.0 mg/dL *NA* (03/09/2012 14:20:00) UA Bili [Negative] Negative *NA* (03/09/2012 14:20:00) UA Leuk Est [Negative] Negative (03/09/2012 14:20:00) UA Nitrite [Negative] Negative (03/09/2012 14:20:00) UA WBC [0-5 /HPF] <1 /HPF (03/09/2012 14:20:00) UA Sq Epi [Few /LPF] Occasional /LPF *NA* (03/09/2012 14:20:00) Micro? Not Indicated *NA* (03/09/2012 14:20:00) BLOOD BANK RESULTS Most recent to oldest [Reference Range]: 1 2 3 ABO/Rh O POS *Unknown* (03/09/2012 14:20:00) Antibody Scrn Negative (03/09/2012 14:20:00) CHEMISTRY Most recent to oldest [Reference Range]: 1 2 3 Sodium Lvl [135-145 mEq/L] 140 mEq/L (03/14/2012 04:05:00) 142 mEq/L (03/13/2012 03:13:00) 137 mEq/L (03/09/2012 14:20:00) Potassium Lvl [3.5-5.1 mEq/L] 4.1 mEq/L (03/14/2012 04:05:00) 4.4 mEq/L (03/13/2012 03:13:00) 4.0 mEq/L (03/09/2012 14:20:00) Chloride Lvl [95-109 mEq/L] 102 mEq/L (03/14/2012 04:05:00) 103 mEq/L (03/13/2012 03:13:00) 98 mEq/L (03/09/2012 14:20:00) CO2 [24-32 mEq/L] 31 mEq/L (03/14/2012 04:05:00) 30 mEq/L (03/13/2012 03:13:00) 30 mEq/L (03/09/2012 14:20:00) AGAP [10.0-20.0 mEq/L] 11.1 mEq/L (03/14/2012 04:05:00) 13.4 mEq/L (03/13/2012 03:13:00) 13.0 mEq/L (03/09/2012 14:20:00) Creatinine Lvl [0.5-1.4 mg/dL] 1.0 mg/dL (03/14/2012 04:05:00) 1.0 mg/dL (03/13/2012 03:13:00) 0.9 mg/dL (03/09/2012 14:20:00) BUN [7-22 mg/dL] 13 mg/dL (03/14/2012 04:05:00) 14 mg/dL (03/13/2012 03:13:00) 24 mg/dL *HI* (03/09/2012 14:20:00) B/C Ratio [6-25] 13 (03/14/2012 04:05:00) 14 (03/13/2012 03:13:00) 27 *HI* (03/09/2012 14:20:00) Glucose Lvl [70-99 mg/dL] 78 mg/dL 1 (03/14/2012 04:05:00) 75 mg/dL 2 (03/13/2012 03:13:00) 72 mg/dL 3 (03/09/2012 14:20:00) Total Protein [6.4-8.4 g/dL] 5.5 g/dL *LOW* (03/14/2012 04:05:00) 7.1 g/dL (03/13/2012 03:13:00) 7.6 g/dL (03/09/2012 14:20:00) Albumin Lvl [3.5-5.0 g/dL] 2.9 g/dL *LOW* (03/14/2012 04:05:00) 3.7 g/dL (03/13/2012 03:13:00) 4.0 g/dL (03/09/2012 14:20:00) Globulin [2.0-4.0 g/dL] 2.6 g/dL (03/14/2012 04:05:00) 3.4 g/dL (03/13/2012 03:13:00) 3.6 g/dL (03/09/2012 14:20:00) A/G Ratio [0.7-1.6] 1.1 (03/14/2012 04:05:00) 1.1 (03/13/2012 03:13:00) 1.1 (03/09/2012 14:20:00) Calcium Lvl [8.5-10.5 mg/dL] 7.7 mg/dL *LOW* (03/14/2012 04:05:00) 8.6 mg/dL (03/13/2012 03:13:00) 9.3 mg/dL (03/09/2012 14:20:00) ALT [0-65 U/L] 25 U/L (03/14/2012 04:05:00) 35 U/L (03/13/2012 03:13:00) 26 U/L (03/09/2012 14:20:00) AST [0-37 U/L] 20 U/L (03/14/2012 04:05:00) 31 U/L (03/13/2012 03:13:00) 24 U/L (03/09/2012 14:20:00) Alk Phos [39-136 U/L] 44 U/L (03/14/2012 04:05:00) 55 U/L (03/13/2012 03:13:00) 49 U/L (03/09/2012 14:20:00) Bili Total [0.2-1.3 mg/dL] 0.3 mg/dL (03/14/2012 04:05:00) 0.3 mg/dL (03/13/2012 03:13:00) 0.3 mg/dL (03/09/2012 14:20:00) Vitamin D, 25-OH, Total [30-100 ng/mL] 25 ng/mL 4 *LOW* (03/09/2012 14:20:00) Vitamin D2 25-OH 9 ng/mL 5 *NA* (03/09/2012 14:20:00) Vitamin D3 25-OH 16 ng/mL *NA* (03/09/2012 14:20:00) 1Interpretive Data: Adult reference range values reflect the clinical guidelines of the [place] [employer]. 2Interpretive Data: Adult reference range values reflect the clinical guidelines of the [place] [employer]. 3Interpretive Data: Adult reference range values reflect the clinical guidelines of the [place] [employer]. 4Result Comment: http://education.[employer]/faq/25-OHVit aminD 25-OHD3 indicates both endogenous production and supplementation. 25-OHD2 is an indicator of exogenous sources such as diet or supplementation. Therapy is based on measurement of Total 25-OHD, with levels <20 ng/mL indicative of Vitamin D deficiency, while levels between 20 ng/mL and 30 ng/mL suggest insufficiency. Optimal levels are >=30 ng/mL. 5Result Comment: Test Performed at: [facility] [address] [id number] Keshawn Hudson MD, PhD HEMATOLOGY Most recent to oldest [Reference Range]: 1 2 3 WBC [3.7-10.4 K/CMM] 5.8 K/CMM (03/14/2012 04:05:00) 10.5 K/CMM *HI* (03/13/2012 03:13:00) 6.0 K/CMM (03/09/2012 14:20:00) RBC [4.20-5.40 M/CMM] 3.38 M/CMM *LOW* (03/14/2012 04:05:00) 4.37 M/CMM (03/13/2012 03:13:00) 4.26 M/CMM (03/09/2012 14:20:00) Hgb [12.0-16.0 g/dL] 10.7 g/dL *LOW* (03/14/2012 04:05:00) 13.5 g/dL (03/13/2012 03:13:00) 13.3 g/dL (03/09/2012 14:20:00) Hct [36.0-48.0 %] 31.0 % *LOW* (03/14/2012 04:05:00) 40.4 % (03/13/2012 03:13:00) 38.5 % (03/09/2012 14:20:00) MCV [81.0-99.0 fL] 91.9 fL (03/14/2012 04:05:00) 92.5 fL (03/13/2012 03:13:00) 90.4 fL (03/09/2012 14:20:00) MCH [27.0-31.0 pg] 31.8 pg *HI* (03/14/2012 04:05:00) 31.0 pg (03/13/2012 03:13:00) 31.3 pg *HI* (03/09/2012 14:20:00) MCHC [32.0-36.0 g/dL] 34.5 g/dL (03/14/2012 04:05:00) 33.5 g/dL (03/13/2012 03:13:00) 34.6 g/dL (03/09/2012 14:20:00) RDW [11.5-14.5 %] 13.1 % (03/14/2012 04:05:00) 13.1 % (03/13/2012 03:13:00) 12.6 % (03/09/2012 14:20:00) Platelet [133-450 K/CMM] 128 K/CMM *LOW* (03/14/2012 04:05:00) 181 K/CMM (03/13/2012 03:13:00) 165 K/CMM (03/09/2012 14:20:00) MPV [7.4-10.4 fL] 8.9 fL (03/14/2012 04:05:00) 9.0 fL (03/13/2012 03:13:00) 8.9 fL (03/09/2012 14:20:00) Segs [45.0-75.0 %] 56.4 % (03/14/2012 04:05:00) 63.6 % (03/13/2012 03:13:00) 52.4 % (03/09/2012 14:20:00) Lymphocytes [20.0-40.0 %] 28.8 % (03/14/2012 04:05:00) 25.3 % (03/13/2012 03:13:00) 37.3 % (03/09/2012 14:20:00) Monocytes [2.0-12.0 %] 9.6 % (03/14/2012 04:05:00) 9.3 % (03/13/2012 03:13:00) 7.3 % (03/09/2012 14:20:00) Eosinophils [0.0-4.0 %] 4.8 % *HI* (03/14/2012 04:05:00) 0.8 % (03/13/2012 03:13:00) 2.4 % (03/09/2012 14:20:00) Basophils [0.0-1.0 %] 0.4 % (03/14/2012 04:05:00) 1.0 % (03/13/2012 03:13:00) 0.6 % (03/09/2012 14:20:00) Segs-Bands # [1.5-8.1 K/CMM] 3.3 K/CMM (03/14/2012 04:05:00) 6.7 K/CMM (03/13/2012 03:13:00) 3.1 K/CMM (03/09/2012 14:20:00) Lymphocytes # [1.0-5.5 K/CMM] 1.7 K/CMM (03/14/2012 04:05:00) 2.7 K/CMM (03/13/2012 03:13:00) 2.2 K/CMM (03/09/2012 14:20:00) Monocytes # [0.0-0.8 K/CMM] 0.6 K/CMM (03/14/2012 04:05:00) 1.0 K/CMM *HI* (03/13/2012 03:13:00) 0.4 K/CMM (03/09/2012 14:20:00) Eosinophils # [0.0-0.5 K/CMM] 0.3 K/CMM (03/14/2012 04:05:00) 0.1 K/CMM (03/13/2012 03:13:00) 0.1 K/CMM (03/09/2012 14:20:00) Basophils # [0.0-0.2 K/CMM] 0.0 K/CMM (03/14/2012 04:05:00) 0.1 K/CMM (03/13/2012 03:13:00) 0.0 K/CMM (03/09/2012 14:20:00) PT [12.0-14.7 seconds] 13.8 seconds (03/09/2012 14:20:00) INR [0.85-1.17] 1.06 6 (03/09/2012 14:20:00) PTT [22.9-35.8 seconds] 33.7 seconds 7 (03/09/2012 14:20:00) 6Interpretive Data: RECOMMENDED RANGES FOR PROTIME INR: 2.0-3.0 for most medical and surgical thromboembolic states. 2.5-3.5 for artificial heart valves and recurrent embolism. INR SHOULD BE USED ONLY FOR PATIENTS ON STABLE ANTICOAGULANT THERAPY. 7Interpretive Data: Heparin Therapeutic Range: 57 - 92 Seconds
--- OUTSIDE RECORDS SUMMARY | 2018-11-20 12:11 | XMS REPORT ---
Author Author [facility] Address Unknown Phone Unavailable Care Team Providers Care Production Intern Name Role Phone Unavailable Unavailable Payers Payer Name Policy Type Policy Number Effective Date Expiration Date Problems This patient has no known problems. Allergies, Adverse Reactions, Alerts Allergy Name Allergy Type Status Severity Reaction(s) Onset Date Inactive Date Treating Clinician Comments No Known Allergies DA Active U 2018-07-28 00:00:00 No Known Allergies DA Active U 2018-07-24 00:00:00 No Known Allergies DA Active U 2014-10-27 00:00:00 Medications This patient has no known medications. Results Test Description Test Time Test Comments Text Results Atomic Results Result Comments SCR MAMM BILATERAL BENEDICT CAD DIGITAL W/AUGMENTATION 2018-09-24 14:30:44 - SCR MAMM BILATERAL BENEDICT CAD DIGITAL W/AUGMENTATIONBILATERAL DIGITAL SCREENING MAMMOGRAM 3D/2D WITH CAD WITH AUGMENTATION: 09/24/2018CLINICAL: Asymptomatic. Digital breast tomosynthesis was performed in addition to routine CC and MLO views. Current mammographic images were evaluated by either a [employer] M-Vu or a [employer] ImageChecker CAD (computer aided detection system). Comparison is made to exams dated 08/25/2017 mammogram, 09/04/2016 mammogram, and 08/09/2015 mammogram - [facility]-. The tissue of both breasts is heterogeneously dense. This may lower the sensitivity of mammography. There are benign appearing calcifications in the left breast. Right breast implant is intact. Left breast implant is intact. No suspicious mass, architectural distortion, malignant type calcification, or lymph node abnormality detected. Breast architecture is stable compared to prior exams.IMPRESSION: BENIGNThere is no mammographic evidence of malignancy. Resume annual screening mammography in one year. [employer]/red:09/24/2018 14:30:44 Home Service Technician: Susan FRANKLIN, [facility]-FWletter sent: BIRADS 1-2 Normal Mammogram BI-RADS: 2 Benign
--- OUTSIDE RECORDS SUMMARY | 2018-11-20 12:11 | XMS REPORT | CCD ---
Author Author Auto Generated Organization [facility] Address Unknown Phone Unavailable Care Team Providers Care Aerial Planting And Cultivation Manager Name Role Phone Gibran Chao CP [place] Jung Sushma PP [phone] Allergies, Adverse Reactions, Alerts Substance Reaction Status codeine sever nausea Active NKFA Active Problem List Condition Effective Dates Status Depression Resolved Hypertension Resolved Morbid obesity Active Nausea 2012 Active Medications Medication Instructions Start Date End Date Status Zofran 4 mg oral 4 mg, 1 tab, PO, BID, 10 tab, 08/14/2012 Ordered tablet Substitution Allowed [place] 5/325 oral 1-2 tab, PO, Q4-6H, PRN, 15 tab, 08/14/2012 08/19/2012 Ordered tablet Pain, Substitution Allowed, Maintenance hydromorphone 1 mg, 1 mL, Route: IVP, Drug form: 08/14/2012 08/14/2012 Completed SOLN, ONCE, Dosing Weight 72.727, kg, Priority: STAT, Start date: 08/14/12 16:41:00, Stop date: 08/14/12 16:41:00 ondansetron 4 mg, 2 mL, Route: IVP, Drug form: 08/14/2012 08/14/2012 Completed INJ, ONCE, Dosing Weight 72.727, kg, Priority: STAT, Start date: 08/14/12 16:41:00, Stop date: 08/14/12 16:41:00 Saline Flush 0.9% 5 mL, Route: IVP, Drug Form: INJ, 08/14/2012 08/15/2012 Discontinued Dosing Weight 72.727, kg, PRN, PRN Line Flush, Start date: 08/14/12 16:41:00, Duration: 24 hr, Stop date: 08/15/12 16:40:00 Sodium Chloride 0.9% 1,000 mL, Rate: 125 ml/hr, Infuse 08/14/2012 08/15/2012 Discontinued IV 1,000 mL over: 8 hr, Route: IV, kg, Total Volume: 1,000, Start date: 08/14/12 16:41:00, Duration: 30 day, Stop date: 09/13/12 16:40:00 Vital Signs Most recent to oldest [Reference Range]: 1 Height 160.02 cm (08/14/2012 16:19:00) Weight 72.727 kg (08/14/2012 16:19:00) Results URINALYSIS Most recent to oldest [Reference Range]: 1 UA Turbidity [Clear] Clear (08/14/2012 16:53:00) UA Color [Yellow] Yellow *NA* (08/14/2012 16:53:00) UA pH [5.0-8.0] 6.0 (08/14/2012 16:53:00) UA Spec Grav [<=1.030] 1.015 (08/14/2012 16:53:00) UA Glucose [Negative mg/dL] Negative mg/dL *NA* (08/14/2012 16:53:00) UA Blood [Negative] Negative (08/14/2012 16:53:00) UA Ketones [Negative mg/dL] Trace mg/dL *ABN* (08/14/2012 16:53:00) UA Protein [Negative mg/dL] Negative mg/dL (08/14/2012 16:53:00) UA Urobilinogen [0.1-1.0 mg/dL] <=1.0 mg/dL *NA* (08/14/2012 16:53:00) UA Bili [Negative] Negative *NA* (08/14/2012 16:53:00) UA Leuk Est [Negative] Negative (08/14/2012 16:53:00) UA Nitrite [Negative] Negative (08/14/2012 16:53:00) UA WBC [0-5 /HPF] 1 /HPF (08/14/2012 16:53:00) UA RBC [0-2 /HPF] <1 /HPF (08/14/2012 16:53:00) UA Bacteria [None Seen /HPF] Occasional /HPF *NA* (08/14/2012 16:53:00) UA Sq Epi [Few /LPF] Occasional /LPF *NA* (08/14/2012 16:53:00) UA Mucus [None Seen /LPF] Few /LPF *NA* (08/14/2012 16:53:00) CHEMISTRY Most recent to oldest [Reference Range]: 1 Sodium Lvl [135-145 mEq/L] 142 mEq/L (08/14/2012 17:00:00) Potassium Lvl [3.5-5.1 mEq/L] 3.6 mEq/L (08/14/2012 17:00:00) Chloride Lvl [95-109 mEq/L] 103 mEq/L (08/14/2012 17:00:00) CO2 [24-32 mEq/L] 34 mEq/L *HI* (08/14/2012 17:00:00) AGAP [10.0-20.0 mEq/L] 8.6 mEq/L *LOW* (08/14/2012 17:00:00) Creatinine Lvl [0.5-1.4 mg/dL] 0.9 mg/dL (08/14/2012 17:00:00) eGFR 70 mL/min/1.73m2 1 *NA* (08/14/2012 17:00:00) BUN [7-22 mg/dL] 15 mg/dL (08/14/2012 17:00:00) B/C Ratio [6-25] 17 (08/14/2012 17:00:00) Glucose Lvl [70-99 mg/dL] 71 mg/dL 2 (08/14/2012 17:00:00) Total Protein [6.4-8.4 g/dL] 7.3 g/dL (08/14/2012 17:00:00) Albumin Lvl [3.5-5.0 g/dL] 3.8 g/dL (08/14/2012 17:00:00) Globulin [2.0-4.0 g/dL] 3.5 g/dL (08/14/2012 17:00:00) A/G Ratio [0.7-1.6] 1.1 (08/14/2012 17:00:00) Calcium Lvl [8.5-10.5 mg/dL] 9.1 mg/dL (08/14/2012 17:00:00) ALT [0-65 unit/L] 26 unit/L (08/14/2012 17:00:00) AST [0-37 unit/L] 26 unit/L (08/14/2012 17:00:00) Alk Phos [39-136 unit/L] 87 unit/L (08/14/2012 17:00:00) Bili Total [0.2-1.3 mg/dL] 0.3 mg/dL (08/14/2012:00:00) Amylase Lvl [25-115 unit/L] 84 unit/L (08/14/2012 17:00:00) Lipase Lvl [73-393 unit/L] 154 unit/L (08/14/2012 17:00:00) 1Result Comment: The eGFR is calculated using [...] from the [employer] ( NKDEP) which additionally recommends that when the eGFR is used in patients with extremes of body mass index for purposes of drug dosing, the eGFR should be mul tiplied by the estimated BMI. 2Interpretive Data: Adult reference range values reflect the clinical guidelines of the [place] [employer]. HEMATOLOGY Most recent to oldest [Reference Range]: 1 WBC [3.7-10.4 K/CMM] 5.4 K/CMM (08/14/2012 18:28:00) RBC [4.20-5.40 M/CMM] 3.76 M/CMM *LOW* (08/14/2012 18:28:00) Hgb [12.0-16.0 g/dL] 11.6 g/dL *LOW* (08/14/2012 18:28:00) Hct [36.0-48.0 %] 35.2 % *LOW* (08/14/2012 18:28:00) MCV [81.0-99.0 fL] 93.6 fL (08/14/2012 18:28:00) MCH [27.0-31.0 pg] 30.9 pg (08/14/2012 18:28:00) MCHC [32.0-36.0 g/dL] 33.1 g/dL (08/14/2012 18:28:00) RDW [11.5-14.5 %] 13.6 % (08/14/2012 18:28:00) Platelet [133-450 K/CMM] 175 K/CMM (08/14/2012 18:28:00) MPV [7.4-10.4 fL] 8.9 fL (08/14/2012 18:28:00) Segs [45.0-75.0 %] 52.7 % (08/14/2012 18:28:00) Lymphocytes [20.0-40.0 %] 35.0 % (08/14/2012 18:28:00) Monocytes [2.0-12.0 %] 8.1 % (08/14/2012 18:28:00) Eosinophils [0.0-4.0 %] 3.6 % (08/14/2012 18:28:00) Basophils [0.0-1.0 %] 0.6 % (08/14/2012 18:28:00) Segs-Bands # [1.5-8.1 K/CMM] 2.9 K/CMM (08/14/2012 18:28:00) Lymphocytes # [1.0-5.5 K/CMM] 1.9 K/CMM (08/14/2012 18:28:00) Monocytes # [0.0-0.8 K/CMM] 0.4 K/CMM (08/14/2012 18:28:00) Eosinophils # [0.0-0.5 K/CMM] 0.2 K/CMM (08/14/2012 18:28:00) Basophils # [0.0-0.2 K/CMM] 0.0 K/CMM (08/14/2012 18:28:00) Procedures Procedures Date Related Diagnosis Breast augmentation Facelift surgery Gastric bypass Hysterectomy
--- OUTSIDE RECORDS SUMMARY | 2018-11-20 12:11 | XMS REPORT | CCD ---
Author Author Auto Generated Organization [facility] Address Unknown Phone Unavailable Care Team Providers Care Account Review Specialist Name Role Phone Gibran Denney Jr RP Jung Bassett PP [phone] Allergies, Adverse Reactions, Alerts Substance Reaction Status codeine sever nausea Active NKFA Active Problem List Condition Effective Dates Status Degenerative disc disease Active Depression Active Depression Resolved Hepatitis1 Resolved Hypertension Active Hypertension Resolved Morbid obesity Active Nausea 2012 Active 1B Medications Medication Instructions Start Date End Date Status dexamethasone 8 mg, Route: IV, ONCE, Dosing 05/24/2013 05/24/2013 Completed Weight 70.455, kg, Start date: 05/24/13 6:50:00, Stop date: 05/24/13 6:50:00 Ancef 1 gm, Route: IVPB, ONCE, Dosing 05/24/2013 05/24/2013 Completed Weight 70.455, kg, Start date: 05/24/13 6:50:00, Stop date: 05/24/13 6:50:00 Vivelle 0.05 mg/24 1 patch, TOP, 2x/Wk, 8 patch, 05/13/2013 Ordered hours twice weekly Substitution Allowed, Maintenance, transdermal film, ERFILM extended release Ofirmev 1,000 mg, 100 mL, Route: IV, Drug 05/14/2013 05/24/2013 Discontinued form: INJ, ONCE, Dosing Weight 70.455, kg, PRN Pain, for > or=50 kg, Start date: 05/14/13 9:52:00 multivitamin PO, Daily, Substitution Allowed, 05/13/2013 Ordered Maintenance ondansetron 4 mg, Route: IVP, ONCE, Dosing 05/24/2013 05/24/2013 Completed Weight 70.455, kg, PRN Nausea & Vomiting, Start date: 05/24/13 10:48:00 hydromorphone 0.5 mg, 0.5 mL, Route: IVP, Drug 05/24/2013 05/24/2013 Discontinued form: INJ, Q5Min, Dosing Weight 70.455, kg, PRN Pain Score 7-10, Start date: 05/24/13 10:48:00, Duration: 5 doses or times, Stop date: Limited # of times fentanyl 25 microgram, 0.5 mL, Route: IVP, 05/24/2013 05/24/2013 Discontinued Drug form: INJ, Q5Min, Dosing Weight 70.455, kg, PRN Pain Score 4-6, Start date: 05/24/13 10:48:00, Duration: 4 doses or times, Stop date: Limited # of times flumazenil 0.2 mg, 2 mL, Route: IVP, Drug 05/24/2013 05/24/2013 Discontinued form: INJ, PRN, Dosing Weight 70.455, kg, PRN Benzodiazepine Reversal, Initial dose, Start date: 05/24/13 10:48:00, Duration: 5 doses or times, Stop date: Limited # of times naloxone 0.04 mg, 0.1 mL, Route: IVP, Drug 05/24/2013 05/24/2013 Discontinued form: INJ, Q2MIN, Dosing Weight 70.455, kg, PRN Narcotic Reversal, Start date: 05/24/13 10:48:00, Duration: 8 doses or times, Stop date: Limited # of times acetaminophen-oxycod 1 tab, Route: PO, Drug Form: TAB, 05/24/2013 05/24/2013 Discontinued one 325 mg-5 mg oral Dosing Weight 70.455, kg, Q4H, PRN tablet Pain Score 1-3, Start date: 05/24/13 10:48:00, Duration: 30 day, Stop date: 06/23/13 10:47:00 acetaminophen-oxycod 2 tab, Route: PO, Drug Form: TAB, 05/24/2013 05/24/2013 Discontinued one 325 mg-5 mg oral Dosing Weight 70.455, kg, Q4H, PRN tablet Pain Score 4-6, Start date: 05/24/13 10:48:00, Duration: 30 day, Stop date: 06/23/13 10:47:00 Lactated Ringers 1,000 mL, Rate: 25 ml/hr, Infuse 05/24/2013 05/24/2013 Discontinued Injection IV 1000 mL over: 40 hr, Route: IV, Dosing Weight 70.455 kg, Total Volume: 1,000, Start date: 05/24/13 6:50:00, Duration: 30 day, Stop date: 06/23/13 6:49:00 lisinopril 20 mg, PO, Daily, Substitution 05/13/2013 Ordered Allowed DepoMedrol 80 mg, Route: IM, Drug form: SUSP, 05/24/2013 05/24/2013 Completed ONCE, Dosing Weight 70.455, kg, Start date: 05/24/13 10:34:00, Stop date: 05/24/13 10:34:00 Vital Signs Most recent to oldest [Reference Range]: 1 2 3 Height 162.56 cm (05/13/2013 09:22:00) Temperature Oral [96.4-99.1 DegF] 98.2 DegF (05/13/2013 09:21:00) Systolic Blood Pressure [90-140 mmHg] 138 mmHg (05/24/2013 12:15:00) 148 mmHg *HI* (05/24/2013 12:00:00) 142 mmHg *HI* (05/24/2013 11:45:00) Diastolic Blood Pressure [60-90 mmHg] 60 mmHg (05/24/2013 12:15:00) 49 mmHg *LOW* (05/24/2013 12:00:00) 50 mmHg *LOW* (05/24/2013 11:45:00) Respiratory Rate [14-20 BRMIN] 17 BRMIN (05/24/2013 12:15:00) 17 BRMIN (05/24/2013 12:00:00) 17 BRMIN (05/24/2013 11:45:00) Peripheral Pulse Rate [60-100 bpm] 76 bpm (05/13/2013 09:21:00) Weight 70.455 kg (05/13/2013 09:22:00) Results CHEMISTRY Most recent to oldest [Reference Range]: 1 Sodium Lvl [135-145 mEq/L] 139 mEq/L (05/13/2013 09:30:00) Potassium Lvl [3.5-5.1 mEq/L] 4.1 mEq/L (05/13/2013 09:30:00) Chloride Lvl [95-109 mEq/L] 101 mEq/L (05/13/2013 09:30:00) CO2 [24-32 mEq/L] 33 mEq/L *HI* (05/13/2013 09:30:00) AGAP [10.0-20.0 mEq/L] 9.1 mEq/L *LOW* (05/13/2013 09:30:00) HEMATOLOGY Most recent to oldest [Reference Range]: 1 Hgb [12.0-16.0 g/dL] 12.6 g/dL (05/13/2013 09:30:00) Hct [36.0-48.0 %] 38.6 % (05/13/2013 09:30:00) Procedures Procedures Date Related Diagnosis Laparoscopic adjustable gastric banding
--- OUTSIDE RECORDS SUMMARY | 2018-11-20 12:11 | XMS REPORT | Summary of Care ---
Author Author [facility] Organization [facility]patient [facility] Address Unknown Phone Unavailable Care Team Providers Care Customer Service Operator Name Role Phone Jung Bassett PCP Encounter [facility]) [id number] Date(s): 05/26/15 - 05/26/15 [facility] Outpatient [address] [phone] Discharge Disposition: Home Attending Physician: Emil King MD Vital Signs No data available for this section Problem List Condition Effective Dates Status Health Status Informant Degenerative disc Active disease(Confirmed) Depression(Confirmed Active ) Depression(Confirmed Resolved ) Hepatitis(Confirmed) Resolved 1 Hypertension(Confirm Active ed) Hypertension(Confirm Resolved ed) Low back pain2 01/09/15 Active Lumbosacral 01/09/15 Active spondylosis without myelopathy3 Morbid Active obesity(Confirmed) Nausea(Confirmed) 2012 Active 1B 2Data migrated from [employer] on 05/02/15. 3Data migrated from [employer] on 05/02/15. Allergies, Adverse Reactions, Alerts Substance Reaction Severity Status codeine sever nausea Active NKFA Active Medications No data available for this section Results No data available for this section Immunizations No data available for this section Procedures Procedure Date Related Diagnosis Body Site Breast augmentation Facelift surgery Gastric bypass Hysterectomy Laparoscopic adjustable gastric banding Social History Social History Type Response Assessment and Plan No data available for this section
[2018-11-20 12:23] VITALS: BP 150/62
[2018-11-20] MEDS ORDERED: SODIUM CHLORIDE 0.9% 250ML 250 ML IV NR (12:45)
[2018-11-20] MEDS ORDERED: FUROSEMIDE INJ 10 MG/ML 2 ML VIAL IV SCH (12:45)
[2018-11-20] MEDS ORDERED: CYMBALTA20 MG PO (12:50)
[2018-11-20] MEDS ORDERED: HYDROCHLOROTHIA25 MG (12:55)
[2018-11-20] MEDS ORDERED: BENICAR20 MG PO (12:55)
[2018-11-20] MEDS ORDERED: ATORVASTATIN CA20 MG PO (12:57)
[2018-11-20] MEDS ORDERED: MONTELUKAST SOD10 MG PO (13:09)
[2018-11-20] MEDS ORDERED: GABAPENTIN300 MG PO ×2 (13:09)
[2018-11-20] MEDS ORDERED: LAMOTRIGINE100 MG PO (13:09)
[2018-11-20] MEDS ORDERED: XYZAL5 MG PO (13:09)
[2018-11-20] MEDS ORDERED: CYCLOBENZAPRINE5 MG PO (13:56)
[2018-11-20] MEDS ORDERED: CLONAZEPAM0.5 MG PO (13:56)
[2018-11-20] MEDS ORDERED: PROMETHAZINE HC25 M1 PO (13:56)
[2018-11-20] MEDS ORDERED: ULTRAM 50MG50 MG PO (13:56)
[2018-11-20 14:31] VITALS: BP 160/62
[2018-11-20 14:59] VITALS: BP 150/62
[2018-11-20] MEDS ORDERED: PNEUMOCOCCAL VACCINE POLYVALENT 23 MCG/0.5 ML VIAL IM SCH (15:02)
[2018-11-20 15:07] VITALS: BP 128/62
[2018-11-20] MEDS ORDERED: SODIUM CHLORIDE 0.9% 250ML 250 ML ONE ×2 (16:02→23:22)
[2018-11-20] MEDS ORDERED: SIMETHICONE80 MG PO (16:35)
[2018-11-20] MEDS ORDERED: MIRALAX17 GM PO (16:35)
[2018-11-20] MEDS ORDERED: NORCO 10-325 T1 EACH PO (16:35)
[2018-11-20] MEDS ORDERED: PROMETHAZINE HCL 25 MG TAB PO PRN (16:45)
[2018-11-20] MEDS ORDERED: POLYETHYLENE GLYCOL PO PRN (16:45)
[2018-11-20] MEDS ORDERED: PROMETHAZINE HCL 25 MG TAB PO SCH (16:45)
[2018-11-20] MEDS ORDERED: CLONAZEPAM 0.5 MG TAB PO PRN (16:45)
[2018-11-20] MEDS ORDERED: POLYETHYLENE GLYCOL 3350 17 GM PACK PO PRN (16:45)
[2018-11-20] MEDS ORDERED: TRAMADOL HCL 50 MG TAB PO PRN (16:45)
[2018-11-20] MEDS: HYDROCODONE/APAP 10MG-325MG TAB PO SCH (17:56)
[2018-11-20] MEDS: SIMETHICONE 80 MG CHEW PO SCH (17:56)
[2018-11-20] MEDS ORDERED: NON-FORMULARY MEDICATION (Cyclobenzaprine Hcl (Flexeril) 10 MG) PO SCH (18:00)
[2018-11-20] MEDS: CYCLOBENZAPRINE HCL 10 MG TAB PO SCH (18:03)
--- NOTE | 2018-11-20 19:00 | NUR ---
received report from day nurse. patient is resting comfortably in bed. bed is in lowest position and call frideman is within reach. will continue to monitor patient.
[2018-11-20 19:25] VITALS: BP 146/66
--- NOTE | 2018-11-20 19:30 | NUR ---
FIRST UNIT OF BLOOD IS DONE TRANSFUSING. NO ADVERSE REACTIONS NOTED. PATIENT WILL BE MEDICATED WITH POST TRANSFUSION LASIX PER PHYSICIANS ORDERS.
[2018-11-20 20:00] VITALS: BP 146/66
[2018-11-20] MEDS ORDERED: ATORVASTATIN 20 MG TAB PO SCH (21:00)
[2018-11-20] MEDS ORDERED: DULOXETINE HCL 20 MG DELAYED RELEASE PO SCH (21:00)
[2018-11-20] MEDS ORDERED: LAMOTRIGINE 25 MG TAB PO SCH (21:00)
[2018-11-20] MEDS ORDERED: LAMOTRIGINE 100 MG TAB PO SCH ×2 (21:00)
[2018-11-20] MEDS ORDERED: GABAPENTIN 300 MG CAP PO SCH (21:00)
[2018-11-20] MEDS: FUROSEMIDE INJ 10 MG/ML 2 ML VIAL IV PRN (21:33)
--- NOTE | 2018-11-20 23:50 | NUR ---
SECOND UNIT OF BLOOD HAS STARTED TRANSFUSING. NO ADVERSE REACTIONS NOTED. WILL CONTINUE TO MONITOR BLOOD TRANSFUSION PROCESS.
[2018-11-21] MEDS: CYCLOBENZAPRINE HCL 10 MG TAB PO SCH ×4 (00:24→17:53)
[2018-11-21 00:45] VITALS: BP 129/69
--- NOTE | 2018-11-21 02:00 | NUR ---
BLOOD TRANSFUSION PROCESS HAS BEEN TEMPORARILY STOPPED DUE TO IV TUBING GETTING UNATTACHED FROM PATIENT.
--- NOTE | 2018-11-21 02:47 | NUR ---
PATIENT HAS BEEN CLEANED UP AND BED SHEETS HAVE BEEN CHANGED. BLOOD TRANSFUSION HAS RESUMED.
--- NOTE | 2018-11-21 03:40 | NUR ---
second unit of blood is done transfusing. patient has been medicated with prn lasix per physician orders. No averse reactions noted.
[2018-11-21 05:30] VITALS: BP 106/53
--- NOTE | 2018-11-21 06:55 | NUR ---
REPORT GIVEN TO MORNING NURSE. PATIENT IS RESTING IN BED. BED IS IN LOWEST POSITION AND CALL LIGHT IS WITHIN REACH.
[2018-11-21 07:03] LABS: HEMATOCRIT 28.6 % (34.2-44.1); HEMOGLOBIN 8.2 g/dL (12.0-16.0)
[2018-11-21 07:20] VITALS: BP 132/66
--- NOTE | 2018-11-21 07:54 | NUR ---
CALLED OFFICE NUMBER FOR DR. PAUL CLAY TO REPORT HEMOGLOBIN AND HEMATOCRIT AFTER FIRST 2 UNITS OF BLOOD TRANSFUSED, SPOKE WITH ROGELIO.
[2018-11-21] MEDS ORDERED: OLMESARTAN 20 MG TAB PO SCH (09:00)
[2018-11-21] MEDS ORDERED: LORATADINE 10 MG TAB PO SCH (09:00)
[2018-11-21] MEDS ORDERED: GABAPENTIN 300 MG CAP PO SCH (09:00)
[2018-11-21] MEDS ORDERED: HYDROCHLOROTHIAZIDE 25 MG TAB PO SCH (09:00)
[2018-11-21] MEDS ORDERED: MONTELUKAST SODIUM 10 MG TAB PO SCH (09:00)
[2018-11-21] MEDS ORDERED: LAMOTRIGINE 100 MG TAB PO SCH (09:00)
[2018-11-21] MEDS: SIMETHICONE 80 MG CHEW PO SCH ×2 (09:03→17:53)
[2018-11-21] MEDS: HYDROCODONE/APAP 10MG-325MG TAB PO SCH ×2 (09:03→17:53)
[2018-11-21 10:23] VITALS: BP 132/66
[2018-11-21] MEDS ORDERED: SODIUM CHLORIDE 0.9% 250ML 250 ML ONE (10:38)
[2018-11-21 11:21] VITALS: BP 137/66
[2018-11-21] MEDS: FUROSEMIDE INJ 10 MG/ML 2 ML VIAL IV PRN ×2 (15:00→18:22)
[2018-11-21 15:37] VITALS: BP 146/71
--- NOTE | 2018-11-21 19:24 | NUR ---
received report from day nurse. patient is resting comfortably in bed. bed is in lowest position and call friedman is within reach.
[2018-11-21 19:46] LABS: HEMOGLOBIN 10.5 g/dL (12.0-16.0)
== END 2018-11-21 20:36 | disposition home or self-care (01) ==
LOC: IMCU 12:07
PROVIDERS: ADMIT Internal Medicine Gastroenterology; ATTEND Internal Medicine Gastroenterology
DX: K55.21 Angiodysplasia of colon with hemorrhage (principal); D64.9 Anemia, unspecified
CPT/HCPCS: 36415; 85014; 85018; 86850; 86900; 86920; 90732; G0378 ×2; J1940 ×2; J7050 ×2; P9016 ×2

== ENCOUNTER → 2023-03-03 | Day surgery (SDC) | payer MEDICARE ==
[2023-02-28 12:51] LABS: BASOPHILS # (AUTO) 0.1 (0.0-0.1); BASOPHILS % 2.1 % (0.0-1.0); EOSINOPHILS # (AUTO) 0.1 (0.0-0.4); EOSINOPHILS % 2.6 % (0.0-6.0); HEMATOCRIT 31.8 % (34.2-44.1); HEMOGLOBIN 9.8 g/dL (12.0-16.0); LYMPHOCYTES # (AUTO) 1.4 (1.0-3.2); LYMPHOCYTES % 35.4 % (18.0-39.1); MEAN CORPUSCULAR HEMOGLOBIN 28.8 pg (28-32); MEAN CORPUSCULAR HGB CONC 30.8 g/dL (31-35); MEAN CORPUSCULAR VOLUME 93.5 fL (81-99); MONOCYTES # (AUTO) 0.3 (0.2-0.8); MONOCYTES % 8.7 % (4.4-11.3); NEUTROPHILS % 50.7 % (38.7-80.0); PLATELET COUNT 213 x10e3/uL (140-360); RED CELL DISTRIBUTION WIDTH 12.4 % (11.7-14.4)
[~2023-03-03] MED LIST: ATORVASTATIN CA20 MG PO; BALANCE OF NATURE; BENICAR20 MG PO; BUPROPION HCL75 MG PO; CALCIUM; CARAFATE1 GM PO; CLONAZEPAM0.5 MG PO; COLLAGEN 15001 EACH; CYCLOBENZAPRINE5 MG PO; CYMBALTA20 MG PO; FENTANYL CITRATE/PF 100MCG/2 ML INJ ONE; GABAPENTIN300 MG PO; HAIR SKIN NAIL1 EACH; HYDROCHLOROTH12.5 MG PO; HYDROCHLOROTHIA25 MG; LACTATED RINGER'S 1,000 ML ONE; LAMOTRIGINE100 MG PO; LOMAIRA8 MG PO; MIRALAX17 GM PO; MONTELUKAST SOD10 MG PO; MULTI-VITAMIN1 EACH PO; NORCO 10-325 T1 EACH PO; NUTRAFOL; OZEMPIC0.25 MG/0. SC; PROBIOTIC & AC1 EACH PO; PROMETHAZINE HC25 M1 PO; PROTONIX20 MG PO; SIMETHICONE80 MG PO; TRAZODONE HCL50 MG PO; TYLENOL325 MG PO; ULTRAM 50MG50 MG PO; XYZAL5 MG PO
[2023-03-03 11:20] VITALS: BP 116/74; PULSE 72; RESP 18; O2SAT 99
== END | disposition home or self-care (01) ==
LOC: OR 08:10
PROVIDERS: ATTEND Internal Medicine Gastroenterology
DX: K55.21 Angiodysplasia of colon with hemorrhage (principal); Z86.010 Personal history of colon polyps; K29.70 Gastritis, unspecified, without bleeding; Z87.11 Personal history of peptic ulcer disease; I10 Essential (primary) hypertension; E78.5 Hyperlipidemia, unspecified; F41.9 Anxiety disorder, unspecified; G89.29 Other chronic pain; F32.A Depression, unspecified; F11.20 Opioid dependence, uncomplicated; Z01.810 Encounter for preprocedural cardiovascular examination; Z01.812 Encounter for preprocedural laboratory examination; Z79.84 Long term (current) use of oral hypoglycemic drugs; Z79.85 Long-term (current) use of injectable non-insulin antidiabetic drugs; Z79.899 Other long term (current) drug therapy
CPT/HCPCS: 36415; 45378; 85025; 93005; J3010; J7121